=== PATIENT | female | born 1965 | race Caucasian/White ===

== ENCOUNTER → 2016-08-10 | Outpatient (CLI) | payer MEDICARE, MEDICAID ==
[~2016-08-10] MED LIST: ALDACTONE25 M1 PO; AMBIEN10 M1 PO; COREG CR10 MG PO; CYCLOBENZAPRINE10 MG PO; EFFEXOR XR37.5 M1 PO; GEODON80 MG PO; HYDROCODONE BIT1 T11 PO; LASIX20 MG PO; LISINOPRIL10 MG PO; MOTRIN800 MG PO; NORCO 10-325 T1 EACH PO; PREDNICOT20 MG PO; PREDNISONE20 MG PO; PREVACID30 M1 PO; SYNTHROID; Synthroid,Levo50 MCG PO; TRAD5TAB1 PO; VALIUM10 MG PO; VOLTAREN50 M1 PO; ZOLOFT100 MG PO
[2016-08-10 11:48] LABS: BASO % 0.5 % (0.0-1.0); EOS # 0.2 10*3/uL (0.0-0.4); EOS % 2.9 % (1.0-4.0); HEMATOCRIT 48.2 % (37.0-47.0); HEMOGLOBIN 16.3 g/dl (12.0-16.0); IG # 0.1 10*3/uL (0.0-0.1); LYMPH # 2.4 10*3/uL (1.3-4.4); LYMPH % 28.1 % (27.0-41.0); MEAN CELL VOLUME 87.8 fl (81.0-99.0); MEAN CORPUSCULAR HGB 29.7 pg (27.0-31.0); MEAN CORPUSCULAR HGB CONC 33.8 g/dl (33.0-37.0); MONO # 0.5 10*3/uL (0.1-1.0); MONO % 5.8 % (3.0-9.0); NEUT # 5.2 10*3/uL (2.3-7.9); NEUT % 62.1 % (47.0-73.0); PLATELET COUNT AUTOMATED 154 10*3/uL (130-400); RED BLOOD COUNT 5.49 10*6/uL (4.10-5.10); RED CELL DISTRI WIDTH 13.7 % (0-14.5); WHITE BLOOD COUNT 8.4 10*3/uL (4.8-10.8)
[2016-08-10 12:13] LABS: ALBUMIN 3.8 gm/dl (3.1-4.5); ALKALINE PHOSPHATASE 98 U/L (45-117); BILIRUBIN, TOTAL 0.5 mg/dl (0.2-1.0); BUN 11 mg/dl (7-24); CARBON DIOXIDE 32 mmol/L (21-32); CHLORIDE 100 mmol/L (98-107); CHOLESTEROL 176 mg/dL (<200); EST GLOM FILT AFRICAN AMERICAN > 60 ml/min; GLUCOSE 166 mg/dL (65-99); HDL CHOLESTEROL 46 mg/dl (40-60); LDL CHOLESTEROL 101 mg/dL (9-159); POTASSIUM 3.6 mmol/L (3.5-5.1); SGOT/AST 27 IU/L (3-35); SGPT/ALT 35 U/L (12-78); SODIUM 138 mmol/L (136-145); TOTAL PROTEIN 7.8 gm/dL (6.4-8.2); TRIGLYCERIDES 146 mg/dl (<150); VLDL CHOLESTEROL 29 mg/dL (6-40)
== END | disposition home or self-care (01) ==
LOC: CARD 08:30 → LAB 08:53 → MAMMO 09:30 → CARD 08-17 09:00
PROVIDERS: Internal Medicine
DX: Z12.31 Encounter for screening mammogram for malignant neoplasm of breast (principal); J44.1 Chronic obstructive pulmonary disease with (acute) exacerbation; E78.2 Mixed hyperlipidemia; R60.0 Localized edema; G47.33 Obstructive sleep apnea (adult) (pediatric)

== ENCOUNTER → 2016-12-11 | Outpatient (CLI) | payer MEDICARE, OTHER | END | disposition home or self-care (01) | LOC: LAB 12:17 | DX: D64.9 Anemia, unspecified (principal); R53.83 Other fatigue ==

== ENCOUNTER → 2017-02-15 | Outpatient (CLI) | payer MEDICARE, OTHER | END | disposition home or self-care (01) | LOC: RAD 14:20 | DX: M47.817 Spondylosis without myelopathy or radiculopathy, lumbosacral region (principal) ==

== ENCOUNTER 2017-03-04 09:59 | Inpatient (IN) | payer OTHER ==
[~2017-03-04] VITALS: Ht 167.6 cm; Wt 127.0 kg
--- NOTE | ~2017-03-04 | WRIGHTHP ---
[place], [place] PATIENT HISTORY AND PHYSICAL EXAM NAME: KOLE CAIN [facility] #: [id number] UNIT #: [id number] ROOM: 404 DOCTOR: ASHWINI WHITNEY MD BIRTHDATE: [birth year] DOS: 03/04/2017 HISTORY OF PRESENT ILLNESS: The patient is a 51-year-old female with a past medical history of: 1. Obesity. 2. Continued nicotine smoke dependence. 3. Hypothyroidism. 4. COPD with chronic respiratory failure and oxygen dependence. 5. Major depression, recurrent. 6. Benign essential hypertension. 7. Bipolar disorder. 8. Type 2 diabetes mellitus. The patient presented to the Emergency Department at [facility] for increasing shortness of breath, cough and some wheezing. After initial treatment in the Emergency Department, the patient was recommended for admission and further management. After admission, the patient had been found smoking in the restroom. The patient says breathing feels even worse after she smoked cigarettes in the hospital. Complains of chest pains prior to coming to the hospital. Now she is pain free and cardiac enzymes have been negative. REVIEW OF SYSTEMS: CARDIOVASCULAR: The patient with episode of chest pains prior to coming to the hospital. LUNGS: Increasing shortness of breath and wheezing. GASTROINTESTINAL: No nausea, vomiting, diarrhea or constipation. FAMILY HISTORY: Noncontributory. HOME MEDICATIONS: Coreg, Geodon, Brintellix, lisinopril, hydrochlorothiazide, Protonix, metformin, glimepiride, gabapentin, diazepam. ALLERGIES: Known allergies to Tagamet and NSAIDs. PHYSICAL EXAMINATION: GENERAL: The patient is alert and oriented x 3, morbidly obese. HEENT AND NECK: Extraocular movements are intact. Sclerae are anicteric. Oral mucosa is moist and clean. No obvious facial weakness. Neck is supple without any lymphadenopathy. No thyromegaly. No JVD. No carotid arterial bruits. LUNGS: Decreased breath sounds all over and slight expiratory wheeze. CARDIOVASCULAR SYSTEM: Heart rate is regular in rate and rhythm. S1 and S2 normally audible. No significant murmur or any other abnormal cardiac sounds. ABDOMEN: Soft, nontender. No obvious organomegaly. Bowel sounds are present. No obvious herniation. EXTREMITIES: Without significant cyanosis or edema. Warm to touch. CENTRAL NERVOUS SYSTEM: Alert and oriented x 3. Cranial nerves II-XII are intact. Speech is normal. The patient is able to move all extremities. Normal muscle strength. Deep tendon reflexes are equal on both sides. Plantars were downgoing. [place], [place] PATIENT HISTORY AND PHYSICAL EXAM NAME: KOLE CAIN [facility] #: [id number] UNIT #: [id number] ROOM: [facility] DOCTOR: ASHWINI WHITNEY MD BIRTHDATE: [birth year] LABORATORY DATA: Normal CBC. Normal serum electrolytes, bilirubin, liver enzymes. CO2 elevated at 34. Chest x-ray showing small right base infiltrate. Cardiac enzymes have been negative so far x 3. IMPRESSION AND PLAN: 1. The patient presenting with chest pains from uncertain etiology. Cardiac enzymes were negative. Cardiology consulted for opinion and management. 2. The patient with severe underlying chronic obstructive pulmonary disease with acute over chronic respiratory failure and on oxygen dependence. The patient being treated with bronchodilators, oxygen, nebulizer treatment and I will consult Dr. Núñez to follow. 3. Right lower lobe pneumonia to be treated with antibiotics. The patient is on Rocephin. 4. Nicotine smoke dependence. The patient encouraged to stop smoking cigarettes and start her on nitropatch. 5. Major depression, recurrent and bipolar disorder. All her home meds from psychiatrist have been continued. 6. Type 2 diabetes mellitus. We will continue home medicine, monitor blood sugars and treat accordingly. 7. Hypothyroidism, treated with thyroid supplements. ASHWINI WHITNEY MD CM:HISPHYS:PATIENT HISTORY AND PHYSICAL EXAMINATION [phone] ASHWINI WHITNEY MD 03/05/172100 interface
--- NOTE | ~2017-03-04 | DS ---
[place], [place] DISCHARGE SUMMARY NAME: KOLE CAIN [facility] #: [id number] UNIT #: [id number] ROOM: 404 DOCTOR: ASHWINI WHITNEY MD BIRTHDATE: [birth year] DOS: 03/07/2017 DISCHARGE DIAGNOSES: 1. The patient with complaints of chest pains with normal cardiac stress test. 2. Exacerbation of chronic obstructive pulmonary disease, improving with treatment. 3. Morbid obesity. The patient worked with Dietary. 4. Right lower lobe pneumonia, treated with antibiotics. 5. Nicotine smoke dependence. The patient encouraged to stop. 6. Major depression, recurrent and bipolar disorder, mild. 7. Type 2 diabetes mellitus. 8. Hypothyroidism. HOSPITAL COURSE: 1. The patient admitted to [facility] with increasing shortness of breath and wheezing. She also had complaints of chest pains. The patient was found to have small right lower lobe basilar pneumonia. The patient was started on treatment with IV Rocephin, corticosteroids, oxygen, and DuoNeb and breathing slowly improved. The patient is feeling better and will be discharged to home to follow up with her PCP, Dr. Bowen within a week of discharge. The patient is being sent home on Augmentin and Medrol Dosepak along with DuoNebs. 2. The right lower lobe pneumonia, small, treated with Rocephin. 3. Morbid obesity. The patient worked with Dietary. 4. Nicotine smoke dependence. The patient encouraged to stop smoking cigarettes. 5. Major depression, recurrent, mild and also bipolar disorder, I continued her home meds. 6. Type 2 diabetes mellitus. Blood sugars are monitored and treated. 7. Hypothyroidism, treated with thyroid supplements. 8. Chest pain. The patient was taken for cardiac stress testing by the weight recorder and the results were normal. LABORATORY DATA: Cardiac enzymes were negative. Normal serum electrolytes. Cardiac stress test was negative. DISCHARGE MANAGEMENT: Medrol Dosepak, Augmentin for 1 week, Coreg 12.5 mg at bedtime, Geodon 160 mg at bedtime, Brintellix 20 mg a day, hydrochlorothiazide 20 mg daily, lisinopril 20 mg a day, Tradjenta 5 mg a day, Protonix 40 mg a day, doxepin 25 mg at bedtime, metformin 1000 mg b.i.d., glimepiride 2 mg b.i.d., gabapentin 800 mg every 8 hours, DuoNebs q.i.d., Vicodin p.r.n., diazepam 10 mg t.i.d. p.r.n. for anxiety. [place], [place] DISCHARGE SUMMARY NAME: KOLE CAIN UNIT #: [id number] ROOM: 404 DOCTOR: ASHWINI WHITNEY MD BIRTHDATE: [birth year] ASHWINI WHITNEY MD CM:DISCHARG [phone] [id number] ASHWINI WHITNEY MD 03/07/172310 interface
--- NOTE | ~2017-03-04 | ST ---
[place], [place] EXERCISE STRESS TEST REPORT NAME: KOLE CAIN [facility] #: [id number] UNIT #: [id number] ROOM: 404 DOCTOR: KRISTEL HAWKINS,PETER BIRTHDATE: [birth year] DOS: 03/07/2017 REASON FOR TEST: Evaluation of chest pain. PHYSICAL EXAMINATION NECK: Supple. LUNGS: Clear anteriorly. HEART: Regular rhythm. PROTOCOL: Lexiscan protocol. Maximum heart rate 81, peak blood pressure 118/70. SYMPTOMS: The patient is chest pain free. EKG: Resting EKG shows sinus rhythm. Stress EKG showed no ischemia, no arrhythmias. CONCLUSION: Clinically, the patient is chest pain free. EKG nonischemic. POST-STRESS COMPLICATIONS: None. The patient received a total of 0.4 mg Lexiscan. PETER HUMPHRIES MD CM:STRESS:EXERCISE STRESS TEST REPORT 1002 0034 PETER HUMPHRIES MD
--- NOTE | ~2017-03-04 | PR ---
[place], [place] PROGRESS NOTE NAME: KOLE CAIN [facility] #: [id number] UNIT #: [id number] ROOM: 404 DOCTOR: ASHWINI WHITNEY MD BIRTHDATE: [birth year] DOS: 03/06/2017 SUBJECTIVE: The patient is still complaining of shortness of breath and wheezing despite of treatment with antibiotics and corticosteroids. No complaints of any chest pains. OBJECTIVE: VITAL SIGNS: Blood pressure 123/81, heart rate of 80 beats per minute, breathing 20 times a minute, temperature of 98 degrees Fahrenheit. IMPRESSION: 1. Exacerbation of severe underlying chronic obstructive pulmonary disease with shortness of breath and wheezing. I will get consult with Dr. Núñez and see if she requires bronchoscopy for a quicker recovery. The patient already being treated with antibiotic, oxygen, corticosteroids and bronchodilators. 2. Right lower lobe basilar pneumonia, being treated with Rocephin. 3. Morbid obesity and adult failure to thrive. The patient working with dietary. 4. Nicotine smoke dependence. The patient on nicotine patch, encouraged to stop. 5. Major depression, recurrent and bipolar disorder, mild, being treated and controlled. 6. Type 2 diabetes mellitus. Blood sugars being monitored and treated. 7. Hypothyroidism, treated with thyroid supplements. ASHWINI WHITNEY MD CM:PNTRANS [id number] ASHWINI WHITNEY MD 03/07/17 1139 interface
--- NOTE | ~2017-03-04 | CON ---
[place], [place] REPORT OF CONSULTATION NAME: KOLE CAIN [facility] #: [id number] UNIT #: [id number] ROOM: 404 DOCTOR: PETER HUMPHRIES MD BIRTHDATE: [birth year] DOS: 03/06/2017 REASON FOR CONSULTATION: Chest pain. CLINICAL HISTORY: The patient is a 51-year-old patient with history of hypertension, diabetes, dyslipidemia, obesity, came to the Emergency Room for shortness of breath. She noted to have progressive shortness of breath for the past few days, associated with some cough and wheezing. While she was in the Emergency Room, she also mentioned that she had some intermittent chest pains prior to her coming to the hospital. She described this pain as the midsternal area, mostly at rest, sometimes with walking. She described this as gripping and tightness that lasts for a few seconds to a few hours. No radiation, no associated symptoms. His pain is mild and relieves on its own. Her main complaint is progressive shortness of breath. No fever and chills. She did have some cough and no palpitations, dizziness, syncope. No PND, no orthopnea. No nausea, vomiting, diarrhea. No blurred vision, double vision. No genitourinary symptoms. No GI symptoms. No musculoskeletal symptoms. REVIEW OF SYSTEMS: Review of the 10 systems negative except as mentioned above. PAST MEDICAL HISTORY: 1. Hypertension. 2. Diabetes type 2. 3. Obesity. 4. Bipolar disorder. 5. Hypothyroidism. 6. Chronic obstructive pulmonary disease. 7. Obesity. PAST SURGICAL HISTORY: Noncontributory. FAMILY HISTORY: Noncontributory. HOME MEDICATIONS: Reviewed. ALLERGIES: PATIENT IS ALLERGIC TO TAGAMET and nonsteroidal antiinflammatory drugs. PHYSICAL EXAMINATION: VITAL SIGNS: Blood pressure 125/68, pulse 73, respirations 18, BMI 45.2. GENERAL: Alert, comfortable, in no acute distress. The patient is still short of breath, sitting in the bed. HEENT: Pupils are round and equal. No jaundice. Tongue was moist and pharynx was clear. NECK: Supple, no distended neck veins, no carotid bruit. CHEST: Symmetrical, nontender. LUNGS: Few scattered rhonchi and minimal wheeze, no rales. HEART: Regular rhythm, no S3, grade 1/6 systolic murmur. No palpable thrills. ABDOMEN: Obese, nontender. Bowel sounds normal. EXTREMITIES: Showed trace edema. Distal pulses are palpable. [place], [place] REPORT OF CONSULTATION NAME: KOLE CAIN UNIT #: [id number] ROOM: [facility] DOCTOR: KRISTEL HAWKINS,PETER BIRTHDATE: [birth year] SKIN: Warm and dry. No cyanosis, no clubbing. NEUROLOGIC: The patient is alert, oriented. No focal neurologic deficit. RECTAL: Deferred. GENITOURINARY: Deferred. MEDICATIONS AND ALLERGIES: Reviewed. REVIEW OF THE DIAGNOSTIC TESTS: EKG showed normal sinus rhythm with no acute ST-T changes. CBC, chemistry and cardiac enzymes reviewed. IMPRESSION: 1. Chest pain, atypical, myocardial infarction ruled out. 2. Shortness of breath due to chronic obstructive pulmonary exacerbation and obesity. 3. Hypertension, stable. 4. Diabetes type 2. 5. Tobacco use. 6. Morbid obesity. RECOMMENDATIONS: 1. Continue current medications. 2. The patient will be scheduled for Lexiscan stress test tomorrow to rule out ischemia due to her chest pain and multiple coronary artery disease risk factors. 3. Check 2D echo for LV function and valvular function due to her shortness of breath. The patient risk factor modification to quit smoking as well as diet, exercise and weight loss discussed. Further recommendations based on her symptoms and about tests. Thank you, Dr. Oneal, for asking us to evaluate this patient and we will follow the case along with you. PETER HUMPHRIES MD CM:CONSTR:REPORT OF CONSULTATION 1407 03/07/17 0530 interface
--- NOTE | ~2017-03-04 | PR ---
[place], [place] PROGRESS NOTE NAME: KOLE CAIN UNIT #: [id number] ROOM: 404 DOCTOR: PETER HUMPHRIES MD BIRTHDATE: [birth year] DOS: 03/07/2017 REASON FOR VISIT: Chest pain and shortness of breath. SUBJECTIVE: The patient is feeling better, no further chest pain. Denies any palpitation, dizziness. Her breathing is much better and less short of breath. REVIEW OF SYSTEMS: Review of the 8 systems negative except as mentioned above. RHYTHM STRIPS: The patient in sinus rhythm. PHYSICAL EXAMINATION: VITAL SIGNS: Blood pressure 108/66, pulse 69 and respiration was 18. GENERAL: Alert, comfortable, in no acute distress. HEENT: Pupils are round and equal. No jaundice. NECK: Supple, no distended neck veins, no carotid bruit. CHEST: Symmetrical, nontender. LUNGS: Few scattered rhonchi, good air entry bilaterally. HEART: Regular rhythm, no S3, no palpable thrills. ABDOMEN: Obese, nontender. Bowel sounds normal. EXTREMITIES: Showed trace edema. Distal pulses are palpable. SKIN: Warm and dry. No cyanosis, no clubbing. NEUROLOGIC: The patient is alert, oriented. No focal neurologic deficit. RECTAL: Deferred. GENITOURINARY: Deferred. MEDICATIONS AND ALLERGIES: Reviewed. IMPRESSION: 1. Chest pain, atypical, myocardial infarction ruled out. 2. Shortness of breath due to chronic obstructive pulmonary disease exacerbation. 3. Hypertension. 4. Diabetes type 2. 5. Tobacco use. 6. Morbid obesity. RECOMMENDATIONS: 1. Blood pressure and heart rates are stable. 2. She has no further chest pains. 3. Continue current medications. 4. Lexiscan stress test today. 5. Risk factor modification to quit smoking, diet, exercise, weight loss discussed. 6. If the stress test is unremarkable, she can be discharged home from the cardiac standpoint. [place], [place] PROGRESS NOTE NAME: KOLE CAIN UNIT #: [id number] ROOM: 404 DOCTOR: PETER HUMPHRIES MD BIRTHDATE: [birth year] PETER HUMPHRIES MD CM:LORI 1004 PETER HUMPHRIES MD 03/08/17 0037 interface
[2017-03-04 10:05] VITALS: BP 120/72
[2017-03-04 10:37] LABS: BASO % 0.3 % (0.0-1.0); EOS # 0.2 10*3/uL (0.0-0.4); EOS % 2.6 % (1.0-4.0); HEMATOCRIT 46.4 % (37.0-47.0); HEMOGLOBIN 15.9 g/dl (12.0-16.0); LYMPH # 1.8 10*3/uL (1.3-4.4); MEAN CELL VOLUME 88.7 fl (81.0-99.0); MEAN CORPUSCULAR HGB 30.4 pg (27.0-31.0); MEAN CORPUSCULAR HGB CONC 34.3 g/dl (33.0-37.0); MEAN PLATELET VOLUME 11.7 fl (9.6-12.3); MONO # 0.4 10*3/uL (0.1-1.0); MONO % 5.5 % (3.0-9.0); NEUT # 4.5 10*3/uL (2.3-7.9); NEUT % 65.2 % (47.0-73.0); PLATELET COUNT AUTOMATED 117 10*3/uL (130-400); RED BLOOD COUNT 5.23 10*6/uL (4.10-5.10)
[2017-03-04 10:45] LABS: PROTHROMBIN TIME 10.7 SECONDS (9.0-12.4)
[2017-03-04 10:53] LABS: ALBUMIN 3.6 gm/dl (3.1-4.5); ALKALINE PHOSPHATASE 100 U/L (45-117); BILIRUBIN, TOTAL 0.7 mg/dl (0.2-1.0); BUN 11 mg/dl (7-24); CARBON DIOXIDE 34 mmol/L (21-32); CHLORIDE 100 mmol/L (98-107); EST GLOM FILT AFRICAN AMERICAN > 60 ml/min; GLUCOSE 181 mg/dL (65-99); MAGNESIUM 2.1 mg/dL (1.5-2.1); POTASSIUM 3.8 mmol/L (3.5-5.1); SGOT/AST 31 IU/L (3-35); SGPT/ALT 38 U/L (12-78); SODIUM 140 mmol/L (136-145); TOTAL PROTEIN 7.6 gm/dL (6.4-8.2)
[2017-03-04 10:54] LABS: TROPONIN I < 0.015 ng/ml (<0.045)
[2017-03-04 12:30] VITALS: BP 121/68
[2017-03-04] MEDS ORDERED: NEXIUM40 MG PO (12:48)
[2017-03-04] MEDS ORDERED: TRINTELLIX20 MG PO (12:48)
[2017-03-04] MEDS ORDERED: DOXEPIN HCL25 MG PO (12:49)
[2017-03-04] MEDS ORDERED: CALCIUM 500 +1 EAC1 PO (12:50)
[2017-03-04] MEDS ORDERED: NEURONTIN800 MG PO (12:50)
[2017-03-04] MEDS ORDERED: IRON325 M3 PO (12:51)
[2017-03-04] MEDS ORDERED: PROAIR HFA8.5 GM INH (12:52)
[2017-03-04] MEDS ORDERED: DUONEB 3 MG/3 ML3 M1 INH (12:53)
[2017-03-04] MEDS ORDERED: METFORMIN1000 MG PO (12:53)
[2017-03-04] MEDS ORDERED: CLARITIN10 MG PO (12:54)
[2017-03-04] MEDS ORDERED: AMARYL2 MG PO (12:55)
[2017-03-04] MEDS ORDERED: LISINOPRIL-HCT1 EACH PO (12:58)
[2017-03-04 13:00] VITALS: BP 121/68
[2017-03-04] MEDS ORDERED: NORCO 5-325 TA1 EACH PO (13:14)
[2017-03-04] MEDS ORDERED: PRINIVIL10 MG PO (13:24)
[2017-03-04] MEDS ORDERED: HYDROCHLOROTHIA25 M1 PO (13:25)
[2017-03-04 16:00] VITALS: BP 117/91
[2017-03-04 20:00] VITALS: BP 128/69
[2017-03-05] VITALS: BP 140/74
[2017-03-05 08:00] VITALS: BP 120/68
[2017-03-05 12:00] VITALS: BP 121/66
[2017-03-05 16:00] VITALS: BP 125/72
[2017-03-05 20:00] VITALS: BP 132/70
[2017-03-06] VITALS: BP 121/73
[2017-03-06 08:00] VITALS: BP 125/68
[2017-03-06 12:00] VITALS: BP 126/67
[2017-03-06] MEDS ORDERED: TOPICAINE 5113 GM T (13:27)
[2017-03-06 16:00] VITALS: BP 123/81
[2017-03-06 20:00] VITALS: BP 120/65
[2017-03-07] VITALS: BP 129/80; BP 130/81
[2017-03-07 08:00] VITALS: BP 112/64
[2017-03-07 12:00] VITALS: BP 119/70
[2017-03-07 16:00] VITALS: BP 130/69
[2017-03-07] MEDS ORDERED: AUGMENTIN 875-875 MG PO (18:37)
[2017-03-07] MEDS ORDERED: MEDROL DOSEPAK4 MG PO (18:37)
== END 2017-03-07 20:00 | disposition home or self-care (01) | DRG 189 ==
LOC: ED 09:59 → EDHOLD 10:47 → 4E 10:47
PROVIDERS: Emergency Medicine
PROC: 3E073KZ Introduction of Other Diagnostic Substance into Coronary Artery, Percutaneous Approach (ICD-10-PCS; principal; 2017-03-07)
PROC: 4A02XM4 Measurement of Cardiac Total Activity, External Approach (ICD-10-PCS; principal; 2017-03-07)
DX: J96.20 Acute and chronic respiratory failure, unspecified whether with hypoxia or hypercapnia (principal); J18.1 Lobar pneumonia, unspecified organism; Z99.81 Dependence on supplemental oxygen; J44.0 Chronic obstructive pulmonary disease with (acute) lower respiratory infection; J44.1 Chronic obstructive pulmonary disease with (acute) exacerbation; F31.30 Bipolar disorder, current episode depressed, mild or moderate severity, unspecified; Z68.42 Body mass index [BMI] 45.0-49.9, adult; I10 Essential (primary) hypertension; E11.9 Type 2 diabetes mellitus without complications; R07.89 Other chest pain; R62.7 Adult failure to thrive; E03.9 Hypothyroidism, unspecified; F17.210 Nicotine dependence, cigarettes, uncomplicated; E66.01 Morbid (severe) obesity due to excess calories; Z98.51 Tubal ligation status; Z88.8 Allergy status to other drugs, medicaments and biological substances

== ENCOUNTER → 2019-03-25 | Day surgery (SDC) | payer OTHER ==
[~2019-03-25] VITALS: Ht 168.9 cm; Wt 120.2 kg
[~2019-03-25] MED LIST changes: +'XANAX1 MG PO; +AMARYL2 MG PO; +AUGMENTIN 875-875 MG PO; +BREO ELLIPTA 21 EACH INH; +CALCIUM 500 +1 EAC1 PO; +CENTRUM SILVER1 EAC1 PO; +CLARITIN10 MG PO; +CO Q10100 MG PO; +COREG12.5 M1 PO; +DOXEPIN HCL100 MG PO; +DOXEPIN HCL25 MG PO; +DUONEB 3 MG/3 ML3 M1 INH; +ESTROVEN MAX400 MCG PO; +FOSAMAX70 M1 PO; +FUROSEMIDE20 M1 PO; +Glimepiride1 MG PO; +HYDROCHLOROTHIA25 M1 PO; +IRON325 M3 PO; +JOINT HEALTH PO; +LISINOPRIL-HCT1 EACH PO; +MEDROL DOSEPAK4 MG PO; +MELATONIN10 M4 PO; +METFORMIN1000 MG PO; +NEURONTIN800 MG PO; +NEXIUM40 MG PO; +NORCO 5-325 TA1 EACH PO; +OMEPRAZOLE D/R20 MG PO; +PRINIVIL10 MG PO; +PROAIR HFA8.5 GM INH; +TOPICAINE 5113 GM T; +TRINTELLIX20 MG PO; +[UNRECOGNIZED DRUG - OTHER] PO
--- NOTE | ~2019-03-25 | O ---
[place], [place] OPERATIVE NOTE NAME: KOLE CAIN UNIT #: [id number] ROOM: DOCTOR: DEANNA MORAN MD BIRTHDATE: [birth year] DOS: 03/25/2019 GASTROENDOSCOPIC REPORT INDICATIONS: The patient has presented with a chief complaint of dyspepsia, history of colonic screening needs as well. PAST HISTORY: Aggressive three-pack smoker of cigarettes and nonalcohol consumer, drinking at least 6 pack of carbonated sodas per day. ALLERGIES: NONSTEROIDAL ANTI-INFLAMMATORY AND TAGAMET. FAMILY HISTORY: Mother with colonic carcinoma. PAST SURGICAL HISTORY: , tubal ligation. PAST MEDICAL HISTORY: Obesity, hypothyroidism, diabetes, COPD, hypertension, depression, bipolar, anxiety. SOCIAL HISTORY: A 2-3 pack smoker and 6 pack of carbonated soda drinking per day. PROCEDURE: Today's procedure part of investigation is panendoscopy and colonoscopy. PREMEDICATION: Propofol. SCOPE: Olympus forward-viewing gastroscope Q10 video. REPORT: After putting the patient in left lateral position and application of lubricant to the scope, the scope was introduced. Thereafter, under direct visualization, advanced through the length of esophagus without difficulty. Gastritis was seen. Antral biopsy was obtained. Duodenal bulb, second and third part within normal limits. The patient extubated, tolerated the procedure well. IMPRESSION: Gastritis, status post biopsy. PLAN AND DISCUSSION: The patient is already on omeprazole 20 mg day. We are going to switch that to 40 mg daily. Advised to abstain from drinking 6 pack of carbonated soda per day. Advised to stop smoking 2-3 packs of cigarettes per day. Followup with you in office. We are going to proceed with colonoscopy. The patient has presented with concern about colonic screening, family history of mother with colonic CA. PROCEDURE: Today's procedure part of investigation is colonoscopy. PREMEDICATION: Propofol. [place], [place] OPERATIVE NOTE NAME: KOLE CAIN UNIT #: [id number] ROOM: DOCTOR: DEANNA MORAN MD BIRTHDATE: [birth year] SCOPE: Olympus forward-viewing colonoscope 10L video. DESCRIPTION OF PROCEDURE: After putting the patient in left lateral position and application of lubricant to the scope, the scope was introduced. Thereafter, under direct visualization, advanced through the length of colon without difficulty. Base of the cecum explored, appendiceal orifice identified, and ileocecal valve was defined. Rare diverticulosis in sigmoid colon seen. The patient extubated, tolerated the procedure well. IMPRESSION: Rare diverticulosis. PLAN: Dietary modification discussed with the patient. It appear, the patient is not going to be compliant; however advice was given. The patient advised to have routine followup with you in office in GI Clinic, followup with us in 2 weeks in the office. DEANNA MORAN MD CM:OPRECORD:OPERATIVE NOTE 8 2 ASHWINI MORAN MD 03/25/19842 interface
--- NOTE | ~2019-03-25 | POSTOPNOTE ---
[place], [place] POSTOPERATIVE PROGRESS NOTE NAME: KOLE CAIN UNIT #: [id number] ROOM: DOCTOR: DEANNA MORAN MD BIRTHDATE: [birth year] DATE: 03/25/19 GI NOTE PREOPERATIVE DIAGNOSIS: DYSPEPSIA POSTOP UPPER GI PROC/FINDINGS: UPPER GI PROCEDURE/SURGERY: EGD WITH BIOPSY UPPER GI FINDINGS: GASTRITIS STATUS POST BIOPSY DEANNA MORAN MD CM:POSTOPN [phone] DEANNA MORAN MD 03/27/19 1025 HOLDEN HAZEL.R
[2019-03-25 06:45] VITALS: BP 109/54
[2019-03-25 08:12] VITALS: BP 106/68
[2019-03-25 08:26] VITALS: BP 111/69
[2019-03-25 08:40] VITALS: BP 105/54
== END | disposition home or self-care (01) ==
LOC: SDC 03-03 08:45
DX: Z12.11 Encounter for screening for malignant neoplasm of colon (principal); K29.50 Unspecified chronic gastritis without bleeding; K57.30 Diverticulosis of large intestine without perforation or abscess without bleeding; E03.9 Hypothyroidism, unspecified; E11.9 Type 2 diabetes mellitus without complications; J44.9 Chronic obstructive pulmonary disease, unspecified; I10 Essential (primary) hypertension; F41.9 Anxiety disorder, unspecified; F32.9 Major depressive disorder, single episode, unspecified; F17.210 Nicotine dependence, cigarettes, uncomplicated; E66.9 Obesity, unspecified; Z68.41 Body mass index [BMI] 40.0-44.9, adult; Z80.0 Family history of malignant neoplasm of digestive organs; Z98.51 Tubal ligation status; Z79.82 Long term (current) use of aspirin; Z79.84 Long term (current) use of oral hypoglycemic drugs; Z79.899 Other long term (current) drug therapy; Z88.8 Allergy status to other drugs, medicaments and biological substances

== ENCOUNTER 2019-06-14 13:22 | Emergency (ER) | payer OTHER ==
[~2019-06-14] VITALS: Ht 167.6 cm; Wt 120.2 kg
[~2019-06-14 13:22] MED LIST changes: +GLIMEPIRIDE2 MG PO; +GLUCOPHAGE1000 MG PO; -Glimepiride1 MG PO; +HAIR, SKIN AND1 EAC1 PO; -JOINT HEALTH PO; +JOINT HEALTH T1 EACH PO; -METFORMIN1000 MG PO; -OMEPRAZOLE D/R20 MG PO; +OMEPRAZOLE MAGN20 MG PO; -[UNRECOGNIZED DRUG - OTHER] PO
[2019-06-14 13:23] VITALS: BP 110/69
[2019-06-14] MEDS ORDERED: NORCO 5-325 TA1 EACH PO (17:00)
[2019-06-15] MEDS ORDERED: ALPRAZOLAM2 MG PO (14:58)
[2019-06-15] MEDS ORDERED: OMEPRAZOLE20 M2 PO (15:02)
[2019-06-15] MEDS ORDERED: KRILL OIL500 MG PO (15:03)
[2019-06-15] MEDS ORDERED: ST. JOHN'S WOR300 MG PO (15:03)
== END 2019-06-14 17:29 | disposition home or self-care (01) ==
LOC: ED 13:22
DX: S82.831A Other fracture of upper and lower end of right fibula, initial encounter for closed fracture (principal); J44.9 Chronic obstructive pulmonary disease, unspecified; I10 Essential (primary) hypertension; E11.9 Type 2 diabetes mellitus without complications; Z88.8 Allergy status to other drugs, medicaments and biological substances; Z91.040 Latex allergy status; Z79.899 Other long term (current) drug therapy; X50.1XXA Overexertion from prolonged static or awkward postures, initial encounter; Y93.89 Activity, other specified; Y92.488 Other paved roadways as the place of occurrence of the external cause; Y99.8 Other external cause status

== ENCOUNTER → 2019-06-15 | Outpatient (CLI) | payer OTHER ==
[~2019-06-15] MED LIST changes: +ALPRAZOLAM2 MG PO; -GLIMEPIRIDE2 MG PO; -GLUCOPHAGE1000 MG PO; +Glimepiride1 MG PO; -HAIR, SKIN AND1 EAC1 PO; +JOINT HEALTH PO; -JOINT HEALTH T1 EACH PO; +KRILL OIL500 MG PO; +METFORMIN1000 MG PO; +OMEPRAZOLE D/R20 MG PO; -OMEPRAZOLE MAGN20 MG PO; +OMEPRAZOLE20 M2 PO; +ST. JOHN'S WOR300 MG PO; +[UNRECOGNIZED DRUG - OTHER] PO
--- NOTE | ~2019-06-15 | EKG ---
[place], [place] ELECTROCARDIOGRAM REPORT NAME: KOLE CAIN UNIT #: [id number] ROOM: DOCTOR: EPIPHANY DRAFT REPORT BIRTHDATE: [birth year] [facility] Test Date: 2019-06-15 Test Time: 14:26:09 Pat Name: KOLE CAIN Department: Room: Gender: F Assistant Executive Housekeeper: : 1965 Requested By: AMARILIS LAMAS Order Number: [id number] Reading MD: Jerry Lundberg MD Measurements Intervals [place] Rate: 75 P: 8 WY: 173 QRS: 7 QRSD: 89 T: 26 QT: 400 QTc: 447 Interpretive Statements Sinus rhythm Low voltage, precordial leads Baseline wander in lead(s) II Electronically Signed On 06-16-2019 4:30:46 PST by Jerry Lundberg MD CM:EKGRPT:ELECTROCARDIOGRAM REPORT 1426 0430 AMARILIS LAMAS MD EPIPHDONOVAN DRAFT REPORT AMARILIS LAMAS MD
[2019-06-15 14:25] LABS: BASO # 0.1 10*3/uL (0.0-0.1); BASO % 0.6 % (0.0-1.0); EOS # 0.2 10*3/uL (0.0-0.4); EOS % 2.3 % (1.0-4.0); HEMATOCRIT 49.7 % (37.0-47.0); LYMPH # 2.8 10*3/uL (1.3-4.4); LYMPH % 33.2 % (27.0-41.0); MEAN CELL VOLUME 89.1 fl (81.0-99.0); MEAN CORPUSCULAR HGB 30.5 pg (27.0-31.0); MEAN CORPUSCULAR HGB CONC 34.2 g/dl (33.0-37.0); MEAN PLATELET VOLUME 12.3 fl (9.6-12.3); MONO # 0.5 10*3/uL (0.1-1.0); MONO % 5.9 % (3.0-9.0); NEUT # 4.9 10*3/uL (2.3-7.9); NEUT % 57.8 % (47.0-73.0); PLATELET COUNT AUTOMATED 156 10*3/uL (130-400); RED BLOOD COUNT 5.58 10*6/uL (4.10-5.10); RED CELL DISTRI WIDTH 12.9 % (0-14.5); WHITE BLOOD COUNT 8.5 10*3/uL (4.8-10.8)
[2019-06-15 14:38] LABS: ACT PARTIAL THROMBO TIME 25.7 SECONDS (20.0-32.1)
[2019-06-15 14:39] LABS: BUN 11 mg/dl (7-24); CHLORIDE 98 mmol/L (98-107); CREATININE 0.85 mg/dL (0.55-1.02); POTASSIUM 3.5 mmol/L (3.5-5.1); SODIUM 135 mmol/L (136-145)
== END | disposition home or self-care (01) ==
LOC: US 12:00
PROVIDERS: Internal Medicine Nephrology
DX: I73.9 Peripheral vascular disease, unspecified (principal); E11.9 Type 2 diabetes mellitus without complications; I10 Essential (primary) hypertension; R20.0 Anesthesia of skin; Z72.0 Tobacco use

== ENCOUNTER 2019-06-17 01:24 | Inpatient (IN) | payer OTHER ==
[2019-06-15 14:56] VITALS: BP 114/73
[~2019-06-17] VITALS: Ht 7886.7 cm; Wt 2.4 kg
[2019-06-17] VITALS (8 sets, daily range): BP systolic 109–132; BP diastolic 62–74
[~2019-06-17 01:24] MED LIST changes: +GLIMEPIRIDE2 MG PO; +GLUCOPHAGE1000 MG PO; -Glimepiride1 MG PO; +HAIR, SKIN AND1 EAC1 PO; -JOINT HEALTH PO; +JOINT HEALTH T1 EACH PO; -METFORMIN1000 MG PO; -OMEPRAZOLE D/R20 MG PO; +OMEPRAZOLE MAGN20 MG PO; -[UNRECOGNIZED DRUG - OTHER] PO
[2019-06-17] MEDS ORDERED: CITRACAL + D E1 EACH PO (16:24)
[2019-06-17] MEDS ORDERED: VITAMIN D31000 UNI1 PO (16:25)
[2019-06-17] MEDS ORDERED: TYLENOL EXTRA500 MG PO (16:33)
--- NOTE | 2019-06-17 17:52 | NUR ---
SCD APPLIED TO LEFT LEG.
--- NOTE | 2019-06-17 17:57 | NUR ---
Notified podiatry resident Dr. Siria Julian that dilaudid was not effective after 1 hour. Pt states she did not obtain any relief. States she will check with attending regarding pain meds as pt states she has allergy to NSAIDS. Allegy reaction is nausea and vomiting I notified her. States she will check and call back.
--- NOTE | 2019-06-17 18:18 | NUR ---
Spoke with Dr. Julian regarding orders for pain. Percocet ordered prn see order.
--- NOTE | 2019-06-17 18:22 | NUR ---
Medicated with percocet per prn order for complaints of pain to rt ankle. Pt states if feels like someone is pinching the back of her ankle really firmly. States pain is 7/10.
[2019-06-18] VITALS: BP 122/73
--- NOTE | 2019-06-18 01:00 | NUR ---
Patient resting quietly with no c/o discomfort. Respirations easy and regular. Vital signs stable. No overt distress. RUDY DIEGO
--- NOTE | 2019-06-18 03:57 | NUR ---
PRN PERCOCET GIVEN FOR RIGHT FOOT PAIN RATED A 10/10. WILL MONITOR FOR EFFECTIVENESS.
--- NOTE | 2019-06-18 04:24 | NUR ---
24HR CHART CHECK COMPLETED.
--- NOTE | 2019-06-18 04:52 | NUR ---
RE-EVALUATED AT THIS TIME. PT IS RESTING COMFORTABLY AT THIS TIME. NO SIGNS OF DISTRESS. RESPIRATIONS ARE EASY AT 18 BREATHS PER MINUTE. PRN PERCOCET EFFECTIVE. CONTINUE TO MONITOR THE PT.
[2019-06-18 06:08] VITALS: BP 132/82
--- NOTE | 2019-06-18 06:08 | NUR ---
PRN DILAUDID GIVEN FOR COMPLAINTS OF RIGHT FOOT PAIN RATED A 10/10. WILL MONITOR FOR EFFECTIVENESS.
--- NOTE | 2019-06-18 06:52 | NUR ---
RE-EVLAUATED AT THIS TIME. PT IS RESTING COMFORTABLY AT THIS TIME. RESPIRATIONS ARE REGULAR AT 18 BREATHS PER MIN. NO ACUTE DISTRESS NOTED. NO SIGNS OF PAIN. PRN DILAUDID EFFECTIVE. CONTINUE TO MONITOR THE PT.
[2019-06-18 08:00] VITALS: BP 122/71
[2019-06-18 10:06] LABS: BASO % 0.1 % (0.0-1.0); EOS # 0.1 10*3/uL (0.0-0.4); EOS % 1.7 % (1.0-4.0); HEMATOCRIT 45.3 % (37.0-47.0); HEMOGLOBIN 15.2 g/dl (12.0-16.0); LYMPH # 2.4 10*3/uL (1.3-4.4); LYMPH % 28.9 % (27.0-41.0); MEAN CELL VOLUME 89.7 fl (81.0-99.0); MEAN CORPUSCULAR HGB 30.1 pg (27.0-31.0); MEAN CORPUSCULAR HGB CONC 33.6 g/dl (33.0-37.0); MONO # 0.5 10*3/uL (0.1-1.0); NEUT # 5.3 10*3/uL (2.3-7.9); NEUT % 62.9 % (47.0-73.0); PLATELET COUNT AUTOMATED 125 10*3/uL (130-400); RED BLOOD COUNT 5.05 10*6/uL (4.10-5.10); RED CELL DISTRI WIDTH 12.8 % (0-14.5); WHITE BLOOD COUNT 8.5 10*3/uL (4.8-10.8)
[2019-06-18 10:38] LABS: BUN 9 mg/dl (7-24); CHLORIDE 102 mmol/L (98-107); CREATININE 0.78 mg/dL (0.55-1.02); POTASSIUM 3.4 mmol/L (3.5-5.1); SODIUM 137 mmol/L (136-145)
--- NOTE | 2019-06-18 13:18 | NUR ---
REFUSED AEROSOL TREATMENT
[2019-06-18 14:50] VITALS: BP 118/80
[2019-06-18 16:00] VITALS: BP 122/62
--- NOTE | 2019-06-18 19:50 | NUR ---
24 HOUR CHART CHECK COMPLETE
[2019-06-18 20:00] VITALS: BP 134/61
--- NOTE | 2019-06-18 20:05 | NUR ---
PATIENT ASSESSMENT COMPLETED WITHOUT INCIDENT,PATIENT DENIED ANY CHEST PAIN AT THIS TIME BUT DID STATE THAT SHE DOES BECOME SLIGHTLY SHORT OF BREATH IF SHE LAYS FLAT, PATIENT DOES USE CPAP AT HOME BUT DOES NOT WISH TO USE THE EQUIPMENT HERE. PATIENT REQUESTING A NICOTINE PATCH AT THIS TIME,WILL CALL DR. LEWIS. CALL LIGHT WITHIN REACH, FAMILY VISITING AT BEDSIDE,WILL CONTINUE TO MONITOR.
--- NOTE | 2019-06-18 20:30 | NUR ---
DR. LEWIS CALLED AND A NICOTINE PATCH WAS ORDERED PER PATIENT REQUEST.
--- NOTE | 2019-06-18 21:18 | NUR ---
PATIENT MEDICATED FOR PAIN IN HER RIGHT FOOT/ANKLE AT THIS TIME, RATED THE PAIN A 10/10,THROBBING,BURNING. TOES ARE PINK, WARM, GOOD SENSATION AND CAPILLARY REFILL.
--- NOTE | 2019-06-18 22:00 | NUR ---
PATIENT STATED THAT HER PAIN IN HER RIGHT FOOT/ANKLE IS A 8/10 AFTER BEING MEDICATED WITH PERCOCET.
--- NOTE | 2019-06-18 22:11 | NUR ---
PATIENT MEDICATED WITH DILAUDID AT THIS TIME FOR PAIN 8/10 IN HER RIGHT FOOT/ANKLE POST SURGICAL REPAIR OF FRACTURE.
--- NOTE | 2019-06-18 23:05 | NUR ---
PATIENT STATED THAT PAIN WAS 5/10 AT THIS TIME AFTER BEING MEDICATED WITH DILAUDID, PATIENT ALERT AND ORIENTED X4 AT THIS TIME.
[2019-06-19] VITALS: BP 127/63
--- NOTE | 2019-06-19 00:30 | NUR ---
PATIENT RESTING IN BED IN A POSITION OF COMFORT, EYES CLOSED, RESPIRATIONS EASY AND NON-LABORED AT THIS TIME. IV INFUSING WITHOUT INCIDENT AT THIS TIME. CALL LIGHT WITHIN REACH, WILL CONTINUE TO MONITOR.
--- NOTE | 2019-06-19 04:20 | NUR ---
PATIENT RESTING IN BED IN A POSITION OF COMFORT WITH EYES CLOSED, RESPIRATIONS EASY AND NON-LABORED, CALL LIGHT WITHIN REACH. NOT AWAKENED PER [facility] POLICY. WILL CONTINUE TO MONITOR.
[2019-06-19 06:44] LABS: BASO % 0.2 % (0.0-1.0); EOS # 0.2 10*3/uL (0.0-0.4); EOS % 2.6 % (1.0-4.0); HEMATOCRIT 41.1 % (37.0-47.0); HEMOGLOBIN 13.7 g/dl (12.0-16.0); LYMPH # 2.1 10*3/uL (1.3-4.4); LYMPH % 35.6 % (27.0-41.0); MEAN CELL VOLUME 90.1 fl (81.0-99.0); MEAN CORPUSCULAR HGB CONC 33.3 g/dl (33.0-37.0); MEAN PLATELET VOLUME 12.2 fl (9.6-12.3); MONO # 0.5 10*3/uL (0.1-1.0); MONO % 8.7 % (3.0-9.0); NEUT % 52.6 % (47.0-73.0); PLATELET COUNT AUTOMATED 109 10*3/uL (130-400); RED BLOOD COUNT 4.56 10*6/uL (4.10-5.10); RED CELL DISTRI WIDTH 12.9 % (0-14.5); WHITE BLOOD COUNT 5.8 10*3/uL (4.8-10.8)
[2019-06-19 06:49] LABS: BUN 7 mg/dl (7-24); CHLORIDE 104 mmol/L (98-107); CREATININE 0.67 mg/dL (0.55-1.02); POTASSIUM 3.3 mmol/L (3.5-5.1); SODIUM 138 mmol/L (136-145)
--- NOTE | 2019-06-19 07:54 | NUR ---
PATIENT REFUSING SCHEDULED DOSE OF TYLENOL. PATIENT STATED IT DOES NOT HELP HER AND SHE WOULD RATHER BE GIVEN PERCOCET FOR PAIN.
[2019-06-19 08:17] VITALS: BP 120/75
--- NOTE | 2019-06-19 08:33 | NUR ---
PERCOCET GIVEN PER PATIENT REQUEST FOR COMPLAINTS OF PAIN RATED 8/10. WILL ASSESS EFFECTIVENESS.
--- NOTE | 2019-06-19 08:45 | NUR ---
PHYSICAL THERAPY Attempted to see pt for evaluation just finishing breakfast and about to take pain pill R ankle -04/30. Eval partially completed, subjective info taken. Will follow later in AM once pain pill taking affect for full evaluation Maylin Scott PT
--- NOTE | 2019-06-19 08:45 | NUR ---
OCCUPATIONAL THERAPY Attempted to see pt for evaluation just finishing breakfast and about to take pain pill R ankle -04/30. Evaluation initiated with subjective information obtained. Will follow up at a later time to complete evaluation. Rochelle Beard OTR/L
--- NOTE | 2019-06-19 09:39 | NUR ---
PERCOCET SLIGHTLY EFFECTIVE PER PATIENT. PAIN RATED 6/10. WILL CONTINUE TO MONITOR.
--- NOTE | 2019-06-19 11:25 | NUR ---
PATIENT STATED SHE WANTED ME TO SPEAK WITH DR LEWIS ABOUT PUTTING HER BACK ON DILAUDID. I SPOKE WITH DR LEWIS REGARDING THE PATIENT'S REQUESTS. DR LEWIS STATED SHE COULD NOT DISCHARGE THE PATIENT ON DILAUDID AND THEREFORE HAD TO KEEP THE DILAUDID DISCONTINUED. I EXPLAINED THE RATIONALE T0 THE PATIENT. THE PATIENT THEN STATED SHE WANTED HER IV OUT IF SHE WAS NOT GOING TO BE RECIEVING ANY PAIN MEDICATION THROUGH IT. I EXLPAINED THE RATIONALE FOR NEEDING AN IV WHILE IN THE HOSPITAL. THE PATIENT THEN STATED, "IF YOU DON'T TAKE OUT MY IV THEN I WILL TAKE IT OUT MYSELF." PATIENT STILL REFUSING TO KEEP IV IN. IV TAKEN OUT PER PATIENT REQUEST.
[2019-06-19 12:00] VITALS: BP 133/77
--- NOTE | 2019-06-19 12:06 | NUR ---
PHYSICAL THERAPY Samy completed moderate level of [id number], recommned SNF at discharge. PT to work on transfers,AMB with AD maintaining NWB of RLE, strengthening and safety. Maylin Scott PT
--- NOTE | 2019-06-19 12:43 | NUR ---
Occupational Therapy evaluation completed on the 5th floor with full eval to follow. Moderate complexity level. Precautions: fall risk, right foot NWB, bed alarm, increased pain. Work on sitting balance, bed mobility and funcitonal transfers. REcommend SNF. Thank you for this referral, Rochelle Beard OTR/Karen
--- NOTE | 2019-06-19 13:22 | NUR ---
PHYSICAL THERAPY Patient was supine in bed following breathing treatment and reported feeling very exhausted with increased R LE pain. Patient requested to remain in bed to rest and will continue per POC as tolerated. Marcello Cai, GOVERNMENT AFFAIRS FELLOW
--- NOTE | 2019-06-19 13:29 | NUR ---
PERCOCET GIVEN PER PATIENT REQUEST FOR COMPLAINTS OF RIGHT ANKLE PAIN RATED 8/10. WILL ASSESS EFFECTIVENESS.
--- NOTE | 2019-06-19 14:30 | NUR ---
PERCOCET SLIGHTLY EFFECTIVE PER PATIENT. PAIN RATED 5/10. WILL CONTINUE TO MONITOR.
--- NOTE | 2019-06-19 15:16 | NUR ---
PHYSICAL THERAPY CO-SIGN I approve of the Physical Therapy notes written above. Maylin Scott PT
[2019-06-19 16:00] VITALS: BP 129/65
--- NOTE | 2019-06-19 17:28 | NUR ---
PERCOCET GIVEN PER PATIENT REQUEST FOR COMPLAINTS OF RIGHT ANKLE PAIN RATED 8/10. WILL ASSESS EFFECTIVENESS.
--- NOTE | 2019-06-19 17:31 | NUR ---
Patient resting quietly with no c/o discomfort. Respirations easy and regular. Vital signs stable. No overt distress. SALVATORE MONK
--- NOTE | 2019-06-19 18:13 | NUR ---
PATIENT STATED PERCOCET WAS SLIGHTLY EFFECTIVE. PAIN 5/10. WILL CONTINUE TO MONITOR.
[2019-06-19 20:00] VITALS: BP 124/70
--- NOTE | 2019-06-19 21:54 | NUR ---
PATIENT REQUESTED PERCOCET AT THIS TIME FOR RIGHT ANKLE PAIN
--- NOTE | 2019-06-19 22:50 | NUR ---
PATIENT STATED THAT PERCOCET WAS SOMEWHAT EFFECTIVE FOR HER ANKLE PAIN, IS REQUESTING SCHEDULED TYLENOL AT THIS TIME.
[2019-06-20] VITALS: BP 109/64
--- NOTE | 2019-06-20 01:54 | NUR ---
PATIENT REQUESTING PERCOCET AT THIS TIME FOR RIGHT ANKLE PAIN AN 8/10 AT THIS TIME. PATIENT ALERT AND ORIENTED.
--- NOTE | 2019-06-20 02:40 | NUR ---
PATIENT STATED THAT PERCOCET WAS SLIGHTLY EFFECTIVE AT THIS TIME.
--- NOTE | 2019-06-20 06:45 | NUR ---
PATIENT LETHARGIC AND DIFFICULT TO KEEP AWAKE AT THIS TIME. EDILMA CHEN STATED THAT SHE WAS IN THE ROOM BEHIND THE CURTAIN CLEANING UP FROM BATHING PATIENT AND HEARD WHAT SOUNDED LIKE MEDICATION BOTTLES BEING OPENED AND MOVED AROUND, WHEN SHE STEPPED AROUND THE CURTAIN PATIENT HURRIEDLY CLOSED HER PURSE. THIS RN OBSERVED UPON APPROACHING THE PATIENT BEDSIDE A CHARGING CORD COMING OUT OF THE PATIENT PURSE AND WHAT APPEARED TO BE A RECHARGABLE VAPE DEVICE STICKING OUT. PATIENT WAS ASKED IF SHE HAD ANY MEDICATIONS IN HER PURSE AND SHE DENIED HAVING ANY. PATIENT ABLE TO ANSWER QUESTIONS APPROPRIATELY BUT WITH DELAYED RESPONSE AND HAVING TO BE AROUSED TO OBTAIN THE ANSWERS. PATIENT ADVISED OF THE COMPLICATIONS OF TAKING MEDICATIONS OTHER THAN WHAT WE WERE GIVING HER AND NOT TO USE THE VAPE SHE HAS A NICOTINE PATCH ON AND THIS FACILITY WAS A NON-SMOKING FACILITY. HISTOLOGY SPECIALIST SONDRA SANTOS.
[2019-06-20 08:00] VITALS: BP 106/63
--- NOTE | 2019-06-20 09:14 | NUR ---
PT COMPLAINS OF 9/10 RIGHT LEG PAIN. MEDICATED PER ORDER. WILL MONITOR FOR RELIEF. VOICES NO OTHER CONCERNS AT THIS TIME. RESTING IN BED PLAYING ON CELL PHONE. CALL LIGHT WITHIN REACH
--- NOTE | 2019-06-20 09:30 | NUR ---
CALLED PHARMACY AND ASKED THEM TO SEND UP PATIENTS [facility].
--- NOTE | 2019-06-20 09:44 | NUR ---
PT REQUESTING TO HAVE BEDSIDE COMMODE PLACED IN ROOM.
--- NOTE | 2019-06-20 10:00 | NUR ---
PATIENT EDUCATED ON SMOKING POLICY. CURRENTLY DENIES HAVING ANY TOBACCO PRODUCTS. VERBALIZED UNDERSTANDING.
--- NOTE | 2019-06-20 10:24 | NUR ---
Shift chart check completed.
--- NOTE | 2019-06-20 11:30 | NUR ---
THERAPY IN TO SEE PATIENT
[2019-06-20 12:00] VITALS: BP 126/83
--- NOTE | 2019-06-20 12:28 | NUR ---
PHYSICAL THERAPY Patient supine in bed at time of arrival. Patient agreeable to participate in therapy session. Performance of bed mobility: supine<->sit requiring SBA-CGA with increased time for completion. Patient exhibits increased pain in (R) LE with movement and reports 3/10 pain. Patient performed STS transer EOB->FWW x 2 trials-- requiring [id number] with emphasis on maintaining NWBing status of (R) LE, technique and safety. Patient tolerated static standing 1 minute, up to 1 min 15 sec with each stand prior to requesting to sit. NWBing (R) LE. Once standing, patient requiring CGA for safety. Pt performed seated/supine BLE ther-ex, for strength, endurance and improved ROM; seated: LAQ (AAROM R LE). supine: quad sets, glute sets, ankle PF/DF and hip ABD/ADD (LLE only), heel slides x 10 reps. Cues and supervision for technique and progression of exercises. CLERK MANAGER monitoring patient tolerance throughout therapy session with no increase in pain and/or new c/o's. Patient supine in bed at session end with call light and tray table within reach. Graciela Kirkpatrick, CLERK MANAGER
--- NOTE | 2019-06-20 13:12 | NUR ---
CALLED PHARMACY AGAIN TO ASK FOR PATIENTS AQUILES.
--- NOTE | 2019-06-20 13:15 | NUR ---
PT COMPLAINS OF 7/10 R LEG PAIN. MEDICATED PER ORDER. WILL CONTINUE TO MONITOR FOR RELIEF. VOICES NO OTHER CONCERNS AT THIS TIME. RESTING IN BED WATCHING TV. CALL LIGHT WITHIN REACH
[2019-06-20 16:00] VITALS: BP 119/65
--- NOTE | 2019-06-20 16:30 | NUR ---
BLOOD SUGAR 221
--- NOTE | 2019-06-20 17:15 | NUR ---
PT COMPLAINS OF 6/10 LEG PAIN. MEDICATED PER ORDER. WILL CONTINUE TO MONITOR FOR RELIEF. VOICES NO OTHER CONCERNS AT THIS TIME. RESTING IN BED. CALL LIGHT WITHIN REACH
--- NOTE | 2019-06-20 18:14 | NUR ---
PERCOCET EFFECTIVE PER PT
--- NOTE | 2019-06-20 18:26 | NUR ---
NURSES AIDE CAME TO THIS NURSE STATING THAT THEY THOUGHT PATIENT WAS VAPING IN ROOM. THIS NURSE WENT DOWN TO PATIENTS ROOM, WHICH DID SMELL LIKE VAPE AND WAS SMOKY. PATIENT AGAIN DENIED ANY USAGE. SUPERVISIOR NOTIFIED.
--- NOTE | 2019-06-20 19:40 | NUR ---
24 HOUR CHART CHECK COMPLETE
[2019-06-20 20:00] VITALS: BP 122/77
--- NOTE | 2019-06-20 20:15 | NUR ---
PATIENT ASSESSMENT COMPLETED AT THIS TIME. PATIENT DENIES ANY CHEST PAIN/PRESSURE OR SHORTNESS OF BREATH AT THIS TIME. REQUESTING PAIN MEDICATION AT THIS TIME, PATIENT INFORMED NEXT DOSE OF PAIN MEDICATION WAS NOT AVAILABLE UNTIL 2114. PATIENT ATTENDANT INFORMED THIS NURSE THAT UPON ENTERING THE ROOM AT SHIFT CHANGE PATIENT WAS NOTED TO BE TAKING A VAPE DEVICE OUT OF HER PURSE AND HURRIEDLY REPLACED IT WHEN SHE NOTICED HER. THIS RN AGAIN REINFORCED TO PATIENT THAT SMOKING OF ANY KIND WAS PROHIBITED IN THIS FACILITY AND THAT THE VAPE WAS TO BE TAKEN HOME BY HER SON 2 DAYS AGO, PATIENT STATED SHE PAID FOR IT AND SHE WAS KEEPING IT WITH HER AND NO ONE WAS TAKING IT ANYWHERE. PATIENT INFORMED OF POLICY ON SMOKING AND POSSIBILITY OF ADMINISTRATIVE DISCHARGE. TILE TRIMMER LAVONNE AWARE OF SITUATION AND ALSO SPOKE WITH PATIENT.
--- NOTE | 2019-06-20 23:03 | NUR ---
PERCOCET GIVEN AT THIS TIME FOR RIGHT ANKLE PAIN 10/10, PATIENT DROWSY BUT AROUSABLE. CALL LIGHT WITHIN REACH WILL CONTINUE TO MONITOR
[2019-06-21] VITALS: BP 129/72
--- NOTE | 2019-06-21 00:20 | NUR ---
PATIENT RESTING IN BED IN A POSITION OF COMFORT AT THIS TIME. NO SIGNS OR SYMPTOMS OF PAIN NOTED AT THIS TIME AFTER ADMINISTRATION OF PAIN MEDICATION. RESPIRATIONS EASY AND NON-LABORED AT THIS TIME. CALL LIGHT WITHIN REACH, WILL CONTINUE TO MONITOR.
--- NOTE | 2019-06-21 03:39 | NUR ---
PATIENT MEDICATED WITH PERCOCET AT THIS TIME FOR COMPLAINT OF 8/10 PAIN IN HER RIGHT ANKLE AND THIGH. PATIENT ALERT AND ORIENTED AT THIS TIME. CALL LIGHT WITHIN REACH WILL CONTINUE TO MONITOR.
--- NOTE | 2019-06-21 04:15 | NUR ---
PATIENT RESTING IN BED IN A POSITION OF COMFORT, RESPIRATIONS EASY AND NON-LABORED AT THIS TIME. NO SIGNS OR SYMPTOMS OF PAIN NOTED AT THIS TIME POST PAIN MEDICATION ADMINISTRATION AT 0338. CALL LIGHT WITHIN REACH, WILL CONTINUE TO MONITOR.
[2019-06-21 08:00] VITALS: BP 128/72
[2019-06-21 16:00] VITALS: BP 114/68
--- NOTE | 2019-06-21 17:12 | NUR ---
PT REQUESTED AND WASMEDICATED WITH PEROCOCET FOR C/O RIGHT FOOT PAIN. CALL LIGHT IN REACH.WILL MONITOR
[2019-06-21 20:00] VITALS: BP 125/80
--- NOTE | 2019-06-21 21:27 | NUR ---
MEDICATED WITH PRN PERCOCET FOR C/O PAIN RATED 10/10 ON A 0/10 PAIN SCALE. WILL MONITOR
--- NOTE | 2019-06-21 23:49 | NUR ---
24 HR chart check completed.
[2019-06-22] VITALS: BP 119/66
--- NOTE | 2019-06-22 01:34 | NUR ---
MEDICATED WITH PRN PERCOCET FOR C/O ANKLE PAIN RATED 7/10 ON A 0/10 PAIN SCALE. WILL MONITOR
--- NOTE | 2019-06-22 05:50 | NUR ---
MEDICATED WITH PRN PERCOCET FOR C/O PAIN IN ANKLE RATED 9/10 ON A 0/10 PAIN SCALE. ALSO STATES SHE DOES NOT WANT TO TAKE HER AMARYL UNTIL SHE EATS BREAKFAST
--- NOTE | 2019-06-22 05:53 | NUR ---
PATIENT REFUSING TO GET OUT OF BED TO USE BEDSIDE COMMODE. STATES THAT THE PAIN IN HER FOOT IS TOO BAD. EDUCATED ON THE IMPORTANCE OF GETTING OUT OF BED. PATIENT VERBALIZED UNDERSTANDING BUT CONTINUES TO REQUEST BEDPAN
[2019-06-22 06:07] LABS: BASO % 0.3 % (0.0-1.0); EOS # 0.2 10*3/uL (0.0-0.4); EOS % 5.2 % (1.0-4.0); HEMOGLOBIN 13.2 g/dl (12.0-16.0); LYMPH # 1.4 10*3/uL (1.3-4.4); LYMPH % 41.1 % (27.0-41.0); MEAN CELL VOLUME 92.4 fl (81.0-99.0); MEAN CORPUSCULAR HGB 30.5 pg (27.0-31.0); MEAN PLATELET VOLUME 11.9 fl (9.6-12.3); MONO # 0.2 10*3/uL (0.1-1.0); MONO % 6.9 % (3.0-9.0); NEUT # 1.6 10*3/uL (2.3-7.9); NEUT % 45.9 % (47.0-73.0); PLATELET COUNT AUTOMATED 112 10*3/uL (130-400); RED BLOOD COUNT 4.33 10*6/uL (4.10-5.10); WHITE BLOOD COUNT 3.5 10*3/uL (4.8-10.8)
[2019-06-22 06:29] LABS: CREATININE 0.58 mg/dL (0.55-1.02)
[2019-06-22 08:00] VITALS: BP 119/72
--- NOTE | 2019-06-22 08:35 | NUR ---
Spoke to Dr. Moe regarding discharge planning. Stars Coordinator in to see patient. Discussed short term SNF and she is agreeable. When provided with a list of facilities she chose [facility]. retail worker notified.
[2019-06-22] MEDS ORDERED: ENOXAPARIN40 MG/0.2 SC (08:48)
--- NOTE | 2019-06-22 09:10 | NUR ---
PHYSICAL THERAPY Patient seen this am 1:1 for therapy visit and was supine in bed upon therapist arrival. Patient identified by name / and voices 7/10 R LE pain while presenting with large R ankle cast. Patient transfers supine to sit EOB with CGA, then sit to stand MIN A x 2 with use of wh walker standing support. Patient is also NWB on R LE and demonstrated 75% compliance during standing transfer. Patient completed several SPT to BSC, wh walker, CGA then SPT to bedside chair, CGA, wh walker, demonstrating slight "bunny" hop technique. Patient remained in chair with call light, tray table, body alarm and telephone in semi reclined position to elevate R LE for edema / pain control. Patient reports no change in pain c/o and will continue per POC as tolerated. Total treatment time 16 minutes. Marcello Cai, CONSUMER SCIENCE TEACHER
--- NOTE | 2019-06-22 09:20 | NUR ---
OT NOTE Pt was seen this A.M. 1:1 for 24 minute OT session. Upon arrival pt was supine in bed. Pt identified by name and and had complaints of 7/10 R foot pain. Pt transferred supine to sit EOB with CGA. Sit to stand completed from bed level with Daniel X 2 and use of w/w with fair carry over of NWB status to RLE. Pt was then educated on standing pivot technique. Standing pivot completed from the EOB to the bedside commode with Daniel X 2 and use of w/w for UE support. Pt then completed standing pivot from the bedside commode back to the EOB with Daniel X 2 and use of w/w. Throughout pt required verbal prompts for sequencing technique. Standing pivot then completed from the EOB to the recliner with Daniel x 2 and use of w/w. There she was left with call light in hand, tray table in place, and bed alarm activated for safety. Continue with rec D/C plan to SNF. NICCI Alexandre/Karen
--- NOTE | 2019-06-22 09:27 | NUR ---
RETREAD SUPERVISOR received notice the patient wants to be referred to [facility]. RETREAD SUPERVISOR faxed new referral to [facility]. -SAM Constantino
--- NOTE | 2019-06-22 10:00 | NUR ---
PT C/O RIGHT ANKLE PAIN 02/28, MEDICATED WITH PERCOCET AT THIS TIME PER ORDER. WILL MONITOR.
--- NOTE | 2019-06-22 10:30 | NUR ---
Engineer Second Assistant in to talk to patient. Patient states lives at home with her pacfst-bb-osc. There are 28 steps in the home. Physician: Dr. Ronald Oneal [facility] Patient's level of ADLs: MINIMAL ASSIST Patient has working utilities: yes DME: cane, nebulizer Follow-up physician's appointment after d/c: she prefers to make her own follow up appt after discharge Does patient want to access PORTAL?: no Discharge plan discussed with patient. She lives at home with her [id number]. She is normally independent in her ADLs and ambulates with a cane. Discussed short term SNF and she is agreeable. When provided with a list of facilities she chose [facility]. pest control worker helper notified. When medically stable, accepted, and precert is obtained she will be discharged to [facility]. She is unsure of discharge transportation at this time. NYDIA STREETER
--- NOTE | 2019-06-22 11:30 | NUR ---
PER PATIENT, PAIN MEDICATION HAS BEEN EFFECTIVE. NO FURTHER COMPLAINTS AT THIS TIME.
--- NOTE | 2019-06-22 13:15 | NUR ---
PHYSICAL THERAPY Patient seen this pm 1:1 for therapy visit and was sitting on BSC upon therapist arrival. Patient identified by name / and reports no new c/o's at this time. Pateint transfers sit to stand from low surface, MIN A then completed SPT to EOB sit, including several "bunny" hop steps with use of wh walker, CGA. Patient remains NWB on R LE and was able to maintain 100% compliance this session during transfer. Patient also instructed on seated B LE therex, completing L LE therex, all planes x 15 reps each, plus R LE, x 10 reps of SAQ to increase strength. Patient able to scoot EOB to L side for positioning prior to returning to supine in bed, MIN A x 1. Patient remained in bed with call light, tray table and telephone. Will continue per POC as tolerated, total treatment time 16 minutes. Marcello Cai, WASTEWATER TREATMENT OPERATOR
--- NOTE | 2019-06-22 13:17 | NUR ---
OT NOTE Pt was seen this P.M. 1:1 for second OT session consisting of 15 minutes. Upon arrival pt was sitting upright on the bedside commode. Pt identified by name and and had complaints of increased fatigue. Sit to stand completed from bedside commode with modA and use of w/w for UE support. Standing pivot then completed from the bedside commode to the EOB with Daniel and use of w/w. Then challenged pt's dynamic sitting balance needed for increased I and enhanced safety, pt was able to maintain G- sitting balance throughout. Pt then transferred sit to supine with SBA. There she was left with call light in hand, tray table in place, and bed alarm activated for safety. Continue with rec D/C plan to SNF. NICCI Alexandre/Karen
--- NOTE | 2019-06-22 13:17 | NUR ---
SPOKE WITH PODIATRY RESIDENT REGARDING PATIENT'S DRESSING CHANGE; WANTS THE DRSG TO STAY IN PLACE UNTIL FOLLOW UP AT VISIT.
--- NOTE | 2019-06-22 14:15 | NUR ---
PT MEDICATED WITH PERCOCET PER PRN ORDER FOR RT FOOT/ANKLE PAIN 04/30. WILL MONITOR FOR EFFECTIVENESS.
[2019-06-22 16:00] VITALS: BP 110/61
--- NOTE | 2019-06-22 18:14 | NUR ---
PT C/O 6/10 PAIN IN RIGHT HIP/THIGHS AND BILAT SHOULDERS. REQUESTING AND GIVEN PERCOCET. WILL MONITOR FOR EFFECTIVENESS.
[2019-06-22 20:00] VITALS: BP 111/58
--- NOTE | 2019-06-22 22:02 | NUR ---
MEDICATED WITH PRN PERCOCET FOR C/O PAIN RATED 8/10 ON A 0/10 PAIN SCALE
[2019-06-23] VITALS: BP 116/69
--- NOTE | 2019-06-23 00:44 | NUR ---
PATIENT CAUGHT VAPING IN ROOM. VAPE PEN LOCKED IN [facility]. PATIENT REFUSING TO GIVE THIS RN HER CIGARETTES, EDGER FEEDER CHAPARRITA MADE AWARE
--- NOTE | 2019-06-23 01:23 | NUR ---
24 HR chart check completed.
--- NOTE | 2019-06-23 02:13 | NUR ---
MEDICATED WITH PRN PERCOCET FOR C/O PAIN RATED 10/10 ON A 0/10 PAIN SCALE
[2019-06-23 08:00] VITALS: BP 128/66
--- NOTE | 2019-06-23 08:00 | NUR ---
Notified Dr. Abhi rosen is pending for [facility]. nursery worker following.
--- NOTE | 2019-06-23 09:30 | NUR ---
OT NOTE Pt was seen this A.M. 1:1 for 20 minute OT session. Upon arrival pt was supine in bed. Pt identified by name and and had complaints of 7/10 RLE pain. Pt transferred supine to sit EOB with SBA. Pt completed multiple sit to stand transfers from bed level with Daniel and use of w/w for UE support. Challenged pt's static standing tolerance needed for increased I in self care tasks and functional transfers. Pt was able to tolerate aprox 2 minutes at a time before sitting due to fatigue. Pt then completed standing pivot from the EOB to the bedside commode with Daniel and use of w/w. Pt transferred on/off bedside commode with Daniel and use of w/w. Pt then transferred back into bed sit to supine with SBA. There she was left with call light in hand, tray table in place, and bed alarm activated for safety. Continue with rec D/C plan to SNF. NICCI Alexandre/Karen
--- NOTE | 2019-06-23 09:38 | NUR ---
PHYSICAL THERAPY Patient seen this am 1;1 for therapy visit and was resting supine in bed upon therapist arrival. Patient identified by name / and reports R LE Quad tendon pain, 01/28. Patient transfers supine to sit EOB with MIN A, then sit to stand CGA, needing v/c for proper hand placement to improve safe transfer technique. Patient is NWB on R LE, presenting with large, plaster ankle cast which makes it more difficult to maintain NWB status. Patient was able to complete SPT to BSC, use of wh walker standing support, CGA. Patient also instructed on safe step sequence ambulating 5'x 1, wh walker, CGA, demonstrating "bunny" hop technique. Patient tolerated all treatment this session without further c/o and returned to supine in bed. Patient remained in bed with call light, tray table, bed alarm and R LE elevated on pillow with cold pack on Quad tendon. Patient instructed to remove ice pack in 20 minutes and will continue per POC as tolerated, total treatment time 16 minutes. Marcello Cai, FLAVORING OIL FILTERER
--- NOTE | 2019-06-23 10:37 | NUR ---
PRECERT is pending for [facility]. -SAM Constantino
[2019-06-23 12:00] VITALS: BP 120/68
--- NOTE | 2019-06-23 12:10 | NUR ---
Nutritional Support Services Note: Pt has healing surgical incision, s/p fx right ankle. She receives a regular diet as ordered. Appetite is good for meals, she is eating 100%. Discussed healthy eating habits to continue to promote healing. Will follow if needed. No other nutrition intervention needed at this time. Basilia Kimball Rdn Ld
--- NOTE | 2019-06-23 13:17 | NUR ---
OT NOTE Pt was seen this P.M. 1:1 for 17 minute OT session. Upon arrival pt was supine in bed. Pt identified by name and and had complaints of 7/10 RLE pain. Pt transferred supine to sit EOB with SBA. Pt completed multiple sit to stand transfers from bed level with Daniel and use of w/w. Challenged pt's static standing tolerance needed for increased I in self care tasks and functional transfers. Pt was able to tolerate aprox 2 minutes at a time before sitting due to fatigue. Pt then transferred back into bed sit to supine with SBA. There she wsa left with call light in hand, tray table in place, and bed alarm activated for safety. Continue with rec D/C plan to SNF. NICCI Alexandre/Karen
--- NOTE | 2019-06-23 13:20 | NUR ---
PHYSICAL THERAPY Patient seen this pm 1;1 for therapy visit and was supine in bed upon therapist arrival. Patient voices 6/10 R ankle burning / pain and identified by name / prior to treatment. Patient transfers supine to sit EOB and sit to stand CGA, demonstrating slow rise during sit to stand, with only 50% compliance with NWB on R LE. Patient instructed on safe step sequence using 3 pt gait pattern, wh walker, CGA, 10'x 1, while demonstrating increased difficulty maintaining NWB status on R LE, approx 50% of time. Patient also very cautious for fear of falling and returned to supine in bed, MIN A with R LE secondarty to heavy plaster cast. Patient remained in bed with call light, tray table, telephone and bed alarm for safety. Will continue per POC as tolerated, total treatment time 14 minutes. Marcello Cai, CAMPGROUND HAND
--- NOTE | 2019-06-23 13:23 | NUR ---
PT C/O RIGHT ANKLE/FOOT PAIN 02/28 AND REQUESTING PAIN MED. GIVEN PERCOCET AT THIS TIME PER ORDER; WILL MONITOR.
--- NOTE | 2019-06-23 14:15 | NUR ---
PER PATIENT, PRN MEDICATION HAS BEEN EFFECTIVE. NO FURTHER COMPLAINTS. DROWSY AT THIS TIME.
--- NOTE | 2019-06-23 17:23 | NUR ---
PATIENT MEDICATED WITH PERCOCET AT THIS TIME PER ORDER FOR COMPLAINTS OF PAIN IN LOWER BACK AND RIGHT LEG PAIN 02/28. WILL MONITOR.
--- NOTE | 2019-06-23 18:15 | NUR ---
PER PATIENT, SHE IS MUCH MORE RELIEVED. PAIN MED EFFECTIVE AT THIS TIME.
--- NOTE | 2019-06-23 19:35 | NUR ---
PATIENT RESTING IN BED WITH NO NEEDS MADE. BED IN LOWEST POSITION, CALL LIGHT IN REACH
[2019-06-23 20:00] VITALS: BP 130/71
--- NOTE | 2019-06-23 21:29 | NUR ---
MEDICATED WITH PRN PERCOCET FOR C/O PAIN IN RIGHT LEG RATED 9/10 ON A 0/10 PAIN SCALE. WILL MONITOR
[2019-06-24] VITALS: BP 117/67
--- NOTE | 2019-06-24 01:31 | NUR ---
MEDICATED WITH PRN PERCOCET FOR C/O PAIN RATED 10/10 ON A 0/10 PAIN SCALE
--- NOTE | 2019-06-24 04:00 | NUR ---
24 HR chart check completed.
--- NOTE | 2019-06-24 05:48 | NUR ---
MEDICATED WITH PRN PERCOCET FOR C/O PAIN RATED 9/10 ON A 0/10 PAIN SCALE. WILL MONITOR
[2019-06-24 06:48] LABS: BASO % 0.2 % (0.0-1.0); EOS # 0.2 10*3/uL (0.0-0.4); EOS % 3.6 % (1.0-4.0); HEMATOCRIT 39.5 % (37.0-47.0); HEMOGLOBIN 12.9 g/dl (12.0-16.0); LYMPH # 1.4 10*3/uL (1.3-4.4); LYMPH % 31.2 % (27.0-41.0); MEAN CELL VOLUME 92.9 fl (81.0-99.0); MEAN CORPUSCULAR HGB 30.4 pg (27.0-31.0); MEAN CORPUSCULAR HGB CONC 32.7 g/dl (33.0-37.0); MEAN PLATELET VOLUME 11.5 fl (9.6-12.3); MONO # 0.4 10*3/uL (0.1-1.0); MONO % 9.1 % (3.0-9.0); NEUT # 2.4 10*3/uL (2.3-7.9); NEUT % 55.2 % (47.0-73.0); PLATELET COUNT AUTOMATED 130 10*3/uL (130-400); RED BLOOD COUNT 4.25 10*6/uL (4.10-5.10); RED CELL DISTRI WIDTH 13.2 % (0-14.5); WHITE BLOOD COUNT 4.4 10*3/uL (4.8-10.8)
[2019-06-24 06:58] LABS: CREATININE 0.61 mg/dL (0.55-1.02)
[2019-06-24 08:00] VITALS: BP 108/56
--- NOTE | 2019-06-24 08:02 | NUR ---
PRECERT is pending. Faxed updates to [facility]. -SAM Constantino
--- NOTE | 2019-06-24 08:15 | NUR ---
PHYSICAL THERAPY Patient seen this am 1:1 for therapy visit and was sitting up on EOB following BSC use upon therapist arrival. Patient identified by name / and presents with R LE ankle cast. Patient is strictly NWB on R LE, transfering supine to sit EOB CGA. Patient reviewed NWB status prior to performing sit to stand CGA, then ambulates with use of wh walker, CGA, demonstrating "bunny" hop gait pattern, increased fatigue, 15'x 1. Patient returned to supine in bed and remained with call light, tray table, telephone and bed alarm for safety. Will continue per POC as tolerated, total treatment time 14 minutes. Marcello Cai, AUTOMATIC PROFILE SHAPER OPERATOR
--- NOTE | 2019-06-24 08:15 | NUR ---
OT NOTE Pt was seen this A.M. 1:1 for 15 minute OT session. Upon arrival pt was sitting upright on the bedside commode. Pt identified by name and and had complaints of 5/10 RLE pain and 8/10 L hip pain. Sit to stand completed from commode level with CGA and use of w/w. Toilet hygiene completed with modA due to LOB occuring while standing without UE support and clothing management completed with CGA for safety. Pt then completed functional mobility back to the EOB with CGA and use of w/w with good carry over NWB to RLE. Challenged pt's static standing tolerance needed for increased activity tolerance and pt was able to tolerate aprox 2 minutes before sitting due to fatigue and pain. Pt then transferred sit to supine with SBA. There she was left with call light in hand, tray table in place, and bed alarm activated for safety. Continue with rec D/C plan to SNF. MARILYN Alexandre
--- NOTE | 2019-06-24 09:07 | NUR ---
PRECERT is pending. SAM completed HENs. -SAM Constantino
--- NOTE | 2019-06-24 09:30 | NUR ---
PERCOSET 5/325 MG GIVEN FOR C/O LEG PAIN,03/31.
--- NOTE | 2019-06-24 10:42 | NUR ---
PRECERT has been obtained. FIELD HAND notified [facility]. She will contact this FIELD HAND when appropriate to arrange transport. FIELD HAND notified Dispatch Supervisor Deena. -SAM Constantino
--- NOTE | 2019-06-24 11:16 | NUR ---
OT NOTE Pt was seen this A.M. for second OT session consisting of 16 minutes. Upon arrival pt was supine in bed. Pt identified by name and and had no complaints at this time. Pt transferred supine to sit EOB with SBA. Sit to stand then completed from bed level with CGA for safety and use of w/w for UE support. Functional mobility completed to the bedside commode (aprox 10 feet) with CGA and use of w/w with two standing rest breaks throughout due to quick onset of fatigue. Pt transferred on/off bedside commode with CGA. While sitting on the commode pt doffed pull ups with SBA and donned new pullups with Daniel for assist with donning over the wrap on her RLE and was then able to manage with CGA for safety. Pt completed functional mobility back to the EOB where she transferred sit to supine with SBA. There she was left with call light in hand, tray table in place, and bed alarm activated for safety. Throguhout entire session pt had good carry over of NWB status to her RLE. Continue with rec D/C plan to SNF. NICCI Alexandre/Karen
--- NOTE | 2019-06-24 12:41 | NUR ---
SOFTWARE SALES CONSULTANT spoke with MAC Oakes about patient discharge. SOFTWARE SALES CONSULTANT spoke with the patient who stated she had no on to transport her to [facility]. SOFTWARE SALES CONSULTANT spoke with [facility] there is no transportation available at this time. SOFTWARE SALES CONSULTANT spoke with [facility] who said they could transport the patient at 2pm. SOFTWARE SALES CONSULTANT will notify [facility] and fax discharge orders. SOFTWARE SALES CONSULTANT will notify Jm. Patient was on phone with the family and stated she would notify them of her discharged to [facility]. -SAM Constantino
--- NOTE | 2019-06-24 13:42 | NUR ---
PERCOSET 5/325 MG GIVEN FOR C/O PAIN,01/28.
--- NOTE | 2019-06-24 14:27 | NUR ---
Discharge instructions reviewed with patient/family. Patient receptive and verbalizes understanding. Follow-up care arranged. Written instructions given to patient/family. MURPHY WRIGHT
--- NOTE | 2019-06-25 08:02 | NUR ---
PHYSICAL THERAPY CO-SIGN I approve of the Physical Therapy notes written above. Maylin Scott PT
== END 2019-06-24 14:27 | disposition other institution (70) | DRG 493 ==
LOC: SDC 01:24 → 5E 11:54 → SDC 13:00 → 5E 06-24 14:27
PROVIDERS: Internal Medicine; ADMIT Internal Medicine
PROC: 0QSJ04Z Reposition Right Fibula with Internal Fixation Device, Open Approach (ICD-10-PCS; principal; 2019-06-17)
PROC: 0MQQ0ZZ Repair Right Ankle Bursa and Ligament, Open Approach (ICD-10-PCS; 2019-06-17)
PROC: 0SSF0ZZ Reposition Right Ankle Joint, Open Approach (ICD-10-PCS; 2019-06-17)
DX: S82.841A Displaced bimalleolar fracture of right lower leg, initial encounter for closed fracture (principal); Z68.41 Body mass index [BMI] 40.0-44.9, adult; E87.6 Hypokalemia; E11.65 Type 2 diabetes mellitus with hyperglycemia; G89.29 Other chronic pain; J44.9 Chronic obstructive pulmonary disease, unspecified; E03.9 Hypothyroidism, unspecified; F17.210 Nicotine dependence, cigarettes, uncomplicated; S93.421A Sprain of deltoid ligament of right ankle, initial encounter; F41.1 Generalized anxiety disorder; R62.7 Adult failure to thrive; J98.01 Acute bronchospasm; F31.9 Bipolar disorder, unspecified; W10.8XXA Fall (on) (from) other stairs and steps, initial encounter; Y93.89 Activity, other specified; Y92.89 Other specified places as the place of occurrence of the external cause; Z88.8 Allergy status to other drugs, medicaments and biological substances; Z91.040 Latex allergy status; Z79.4 Long term (current) use of insulin; Z79.899 Other long term (current) drug therapy; Y99.8 Other external cause status

== ENCOUNTER 2019-07-11 19:27 | Emergency (ER) | payer OTHER ==
[~2019-07-11] VITALS: Ht 168.9 cm; Wt 118.8 kg
[~2019-07-11 19:27] MED LIST changes: +CITRACAL + D E1 EACH PO; +ENOXAPARIN40 MG/0.2 SC; +TYLENOL EXTRA500 MG PO; +VITAMIN D31000 UNI1 PO
[2019-07-11 21:05] VITALS: BP 112/57
== END 2019-07-12 00:23 | disposition other institution (70) ==
LOC: ED 19:27
DX: S80.02XA Contusion of left knee, initial encounter (principal); S80.01XA Contusion of right knee, initial encounter; M79.671 Pain in right foot; J44.9 Chronic obstructive pulmonary disease, unspecified; I10 Essential (primary) hypertension; E11.9 Type 2 diabetes mellitus without complications; E07.9 Disorder of thyroid, unspecified; F17.200 Nicotine dependence, unspecified, uncomplicated; Z88.8 Allergy status to other drugs, medicaments and biological substances; Z91.040 Latex allergy status; Z79.899 Other long term (current) drug therapy; W19.XXXA Unspecified fall, initial encounter; Y93.89 Activity, other specified; Y92.128 Other place in nursing home as the place of occurrence of the external cause; Y99.8 Other external cause status

== ENCOUNTER 2019-08-18 19:30 | Inpatient (IN) | payer OTHER ==
[~2019-08-18] VITALS: Ht 170.1 cm; Wt 112.1 kg
[2019-08-18 19:37] VITALS: BP 113/68
[2019-08-18 19:56] VITALS: BP 116/64
--- NOTE | 2019-08-18 23:37 | NUR ---
PATIENT HAS WOUND RIGHT GREAT TOE, REFUSES PHOTOS.
[2019-08-19 00:50] VITALS: BP 101/63
--- NOTE | 2019-08-19 00:50 | NUR ---
A 54, admitted to 5E, under the services of Dr. DEVONTE HAWKINS,ASHWINI Chavarria with a diagnosis of UNABLE TO AMBULATE. Chief complaint is FALL. Patient arrived via bed from ER. Monitor applied. Initial assessment completed. Vital signs taken and recorded. DR. DEVONTE HAWKINS,ASHWINI Chavarria notified of admission to the unit. Orders received. See assessment for past medical history, medications and allergies. Patient and/or family oriented to unit. [facility] visitation policy reviewed. Clothing/patient valuable form completed. ANGELINA GOLD
--- NOTE | 2019-08-19 01:00 | NUR ---
PT REFUSING WOUND PHOTOS TO BE TAKEN AT THIS TIME. PT STATES THAT SHE "JUST WANTS BANDAIDS" PT ALSO REFUSING NURSE TO LOOK AT [facility]. PT STATES "I DONT HAVE ANY WOUNDS THERE" PT HAS BILATERAL REDDENED/BLANCHABLE AREAS ON KNEES. REDDENED/BLANCHABLE AREAS TO BILATERAL ELBOWS WELL. PT HAS SCABS ON LEFT ARM R/T DOG, NOT OPENED.
[2019-08-19] MEDS ORDERED: CYCLOBENZAPRINE10 MG PO (01:10)
[2019-08-19] MEDS ORDERED: ZESTORETIC 20-1 EACH PO (01:16)
--- NOTE | 2019-08-19 01:30 | NUR ---
DR. WHITNEY CALLED. ORDERS RECEIVED. NOTIFIED OF NEED FOR WOUND ORDERS. STATED "HAVE CRYSTAL SEE PT". WILL NOTIFY CRYSTAL.
--- NOTE | 2019-08-19 05:42 | NUR ---
ANTKOLE [id number] Please refer to the physician's history and physical for past medical history, comorbid conditions, and allergies. Diagnosis: UNABLE TO AMBULATE Fracisco Score: 16,AT RISK WOUND DESCRIPTIONS: Wound Number: 1 Location of the wound: right great toe Type of wound: traumatic Thickness: Partial Size: 1.5cm x 3.0cm x <0.1cm Tunneling: none Undermining: none Sinus Tract: none Presence of Exudate: Sanguineous noted into cast podiatry is already on consult Amount: Light Color: Red Odor: None Periwound Skin Appearance: Erythema Wound edges: approximated Pain (associated with wound): tender to touch How does patient state this happened? pt stated she fell multiple times at home because of sciatica nerve not being able to hold her up Wound Number: 2 Location of the wound: left knee Type of wound: abrasion Thickness: Partial Size: 1.5cm x 1.2cm x <0.1cm Tunneling: none Undermining: none Sinus Tract: none Presence of Exudate: none Amount: None Color: Brown, red Odor: None Periwound Skin Appearance: Erythema measuring 12.0cm x 13.0cm x <0.1cm Wound edges: approximated Pain (associated with wound): very tender to touch How does patient state this happened? pt stated she fell multiple times at home because of sciatica nerve not being able to hold her up Wound Number: 3 Location of the wound: left arm Type of wound: scab Thickness: Partial Size: 0.4cm x 2.8cm x <0.1cm Tunneling: none Undermining: none Sinus Tract: none Presence of Exudate: none Amount: None Color: Red Odor: None Periwound Skin Appearance: Normal Wound edges: approximated Pain (associated with wound): none at time of assessment How does patient state this happened? pt stated this is from her dogs that scratched her Right knee erythema noted measuring 9.0cm x 9.0cm x <0.1cm. No open areas at time of assessment to right knee and no drainage noted at time of assessment of right knee. Right elbow erythema noted measuring 4.5cm x 3.3cm x <0.1cm. No open areas or drainage noted to right elbow. Patient has red blanchable areas noted to buttocks. Patient is incontient of urine at time of assessment. Pericare provided by PA's at time of assessment. Surface the patient is resting on: Isoflex SKIN PREVENTION RECOMMENDATION: 1. Pressure redistribution support surface as appropriate 2. Elevate heels 3. Remove boots/TEDS every shift and reapply 4. Head of bed 30 degrees as tolerated 5. Assess nutrition and hydration 6. Manage moisture 7. Avoid the use of containment devices while in bed 8. Use absorptive products on surfaces limit layers of linens on bed 9. Turn and reposition every 1-2 hours in bed and every 1 hour in chair as tolerated 10. Weight shifts every 15 minutes while up in chair 11. Offloading with pillows or device to keep heels elevated off bed 12. Monitor skin at least every shift 13. Inspect under medical devices twice a day WOUND TREATMENT RECOMMENDATIONS: Heel raiser pro boots to left foot while in bed Wheelchair cushion when oob. Dressing change: Cleanse right great toe with nss and apply bactroban ointment bid and cover with bandaid. Podiatry is already on consult. Partial thickness guidelines: Cleanse left knee and left arm with nss and apply sureprep around the wound hydrogel to wound bed and cover with optifoam gentle.
--- NOTE | 2019-08-19 07:36 | NUR ---
ATTEMPTED TO CALL PODIATRY FOR CONSULT, NO ANSWER
[2019-08-19 08:00] VITALS: BP 110/62
--- NOTE | 2019-08-19 08:38 | NUR ---
VS STABLE- ELOISE, A&O X3, COLOR IS GOOD, SKIN WARM DRY AND INACT, CAPILLARY <3 SECONDS, SKIN TURGOR NON-TENTING, REDDENED AREAS ON ELBOWS, LEFT ARM SCAB, LEFT KNEE ABRASION, ERYTHEMA NOTED TO RIGHT AND LEFT KNEE, RIGHT GREATER TOE TRAUMATIC INJURY DRESSING INTACT WITH VISABLE LIGHT SANGUINEOUS DRAINAGE, LUNGS DIMINISHED BILATERALLY WHEEZES ON INSPIRATION AND EXPIRATION CRACKLES ON BASE, PO2 97% ON ROOM AIR, HEART SOUNDS NORMAL RATE OF 94, ABDOMEN SOFT NON-TENDER NON-DISTENDED, BOWEL SOUNDS X4, PATIENT STATES "SCIATIC NERVE PAIN 8/10", PATIENT PLEASANT AND COOPERATIVE, NO FURTHER COMPLAINTS AT THIS TIME, WILL CONTINUE TO ASSESS. [facility]
--- NOTE | 2019-08-19 09:00 | NUR ---
Moving Van Driver in to talk to patient. Patient states lives at home with her uhgesa-vs-rvn, son, and her son's girlfriend. There are 28 steps in the home. Physician: Dr. Ronald Oneal Pharmacy: [facility] health services: none Patient's level of ADLs: MINIMAL ASSIST Patient has working utilities: yes DME: cane, walker, nebulizer, c-pap, O2/DME supplier [employer] (previously [employer]) Follow-up physician's appointment after d/c: she prefers to make her own follow up appt after discharge Does patient want to access PORTAL?: no Discharge plan discussed with patient. She lives at home with her family. She is normally independent in her ADLs and ambulates with either a cane or a walker. She is awaiting [employer] to send her replacement pieces for her c-pap. Discussed short term SNF and she is agreeable. When provided with a list of facilities she chose [facility] as she has been there before. regional planner notified. When medically stable, accepted, and precert is obtained she will be discharged to [facility]. NYDIA STREETER
--- NOTE | 2019-08-19 10:02 | NUR ---
PHYSICIAN WAS NOTIFIED OF DR. ARIAS CONSULT. RESPONSE OF NOTIFICATION WAS DR SORIANO SAID OK WE WILL SEE HER.. GUERRERO NEVES
--- NOTE | 2019-08-19 11:34 | NUR ---
DRESSING ON RIGHT GREATER TOE FELL OFF. RECLEANED WITH NS. BANDAGE AND BACTRABAN REAPPLIED. TOLERATED WELL. HEIDY BENITEZCC
[2019-08-19 16:00] VITALS: BP 105/64
--- NOTE | 2019-08-19 18:58 | NUR ---
C/O SCIATICA PAIN OF 03/31. REQUESTED IV DILAUDID. GIVEN AT THIS TIME. WILL CONT TO MONITOR. CALL LIGHT IN REACH.
--- NOTE | 2019-08-19 19:07 | NUR ---
Shift chart check completed.24 HR chart check completed.
--- NOTE | 2019-08-19 20:19 | NUR ---
ON ASSESSMENT PATIENT RESTING EASILY IN BED. CAST INTACT WITH BANDAID TO RT GREAT TOE. PT WIGGLES HER RT TOES. NO SWELLING ABOVE HER CAST TO RT LEG. HEEL RAISER TO LEFT FOOT. PT ASKING WHEN DILAUDID CAN BE GIVEN AGAIN BECAUSE IT DID HELP SOME. WHITE BOARD UPDATED. NO RESPIRATORY DISTRESS. ABDOMEN SOFT. HEP LOCK INTACT RT ARM. SEE ALL APPROPRIATE INTERVENTIONS.
--- NOTE | 2019-08-19 22:30 | NUR ---
MEDICATED WITH HER ROUTINE HS MEDS. PT ASKED ABOUT "NEXT PAIN SHOT". SHOWED HER THE WHITE BOARD AND TOLD HER ABOUT ASKING IF STILL HAVING PAIN AT 0045.
--- NOTE | 2019-08-19 23:45 | NUR ---
ASSUMED CARE FOR THIS PT AT THIS TIME. PT RESTING QUIETLY IN BED. NO S/S OF DISTRESS NOTED. CALL LIGHT IN REACH.
[2019-08-20] VITALS: BP 118/75
--- NOTE | 2019-08-20 00:51 | NUR ---
PT MEDICATED W/DILAUDID FOR C/O RT HIP PAIN 04/30. CALL LIGHT IN REACH.
[2019-08-20 08:00] VITALS: BP 82/60
--- NOTE | 2019-08-20 08:00 | NUR ---
DR WHITNEY NOTIFIED OF BP 82/60. NEW ORDERS RECEIVED TO STOP MEDICATIONS.
--- NOTE | 2019-08-20 08:08 | NUR ---
patient requesting a referral to [facility]. Contacted facility and faxed initial referral. Waiting on PT/OT evals. Requires precert.
--- NOTE | 2019-08-20 08:55 | NUR ---
Patient in bed with lights off and approached for OT evaluation. Patient reports severe 10/10 pain in left buttock, left groin and LLE. Nurse reports patient's blood pressure in 82/60 and that patient has not been moving out of bed much and that she will not be gettig any pain medication with her low blood pressure. OTR to recheck at a later time. Madai Campoverde OTR/Karen
--- NOTE | 2019-08-20 09:00 | NUR ---
Water Treatment Plant Supervisor in to see patient. No new needs or request at this time. When medically stable, accepted, and precert received she will be discharged to [facility]. office workforce planner following.
--- NOTE | 2019-08-20 09:15 | NUR ---
PHYSICAL THERAPY Attempted to see pt for eval c/o 04/30 pain L hip and she "can't do anything" at this time. Spoke with nsg pt has received all pain meds she can and not giving her anymore at this time as pt's BP is only 82/60. Will see pt later today as able pending pain level and BP. Maylin Scott PT
--- NOTE | 2019-08-20 11:11 | NUR ---
C/O PAIN TO HIP OF 04/30. NORCO GIVEN AT THIS TIME. WILL CONT TO MONITOR. CALL LIGHT IN REACH.
[2019-08-20] MEDS ORDERED: XANAX1 MG PO (11:16)
[2019-08-20] MEDS ORDERED: XARELTO10 MG PO (11:26)
--- NOTE | 2019-08-20 11:28 | NUR ---
RECEIVED LIST OF MEDS FROM PT PHARMACY AND COMPARED WITH HER MED LIST FROM HOME. QUESTIONED PT REGARDING SOME MEDS. DR WHITNEY UPDATED AND MEDS WERE ADJUSTED.
[2019-08-20] MEDS ORDERED: Amaryl2 MG PO (11:30)
[2019-08-20 12:00] VITALS: BP 105/62
--- NOTE | 2019-08-20 12:11 | NUR ---
BALTIC EFF AT THIS TIME. WILL CONT TO MONITOR. CALL LIGHT IN REACH.
--- NOTE | 2019-08-20 12:42 | NUR ---
[facility] stating they are unable to accept this patient at this time. They cannot meet her needs.
--- NOTE | 2019-08-20 12:50 | NUR ---
[facility] not able to accept patient at this time. Discussed with patient the other SNF within her network would be [facility] in [place]. She states "that is a little far for my family to drive to come visit me but if that is the only place I can go to then that is the only place I can go to." mechanical planner notified.
--- NOTE | 2019-08-20 15:20 | NUR ---
Patient approached for OT evaluation and she pleasantly declined dt fatigue. OTR will attempt at a later date. Laly Campoverde OTR/shima
--- NOTE | 2019-08-20 15:30 | NUR ---
PHYSICAL THERAPY Attempted to see pt for eval at the bedside pt requesting to be seen in the AM Maylin Scott PT
[2019-08-20 16:00] VITALS: BP 104/55
--- NOTE | 2019-08-20 20:30 | NUR ---
Patient resting quietly on entrance to room. Respirations easy and regular. Vital signs stable. No overt distress. During assessment pt c/o sciatic pain. Will plan to administer norco with night time medications. Pt aware, states "that would be fine". VLAD BILLINGS
--- NOTE | 2019-08-20 22:13 | NUR ---
NORCO ADMINISTERED FOR PT C/O SCIATIC PAIN RATED AN 8/10 ON THE PAIN SCALE. WILL CONTINUE TO MONITOR.
--- NOTE | 2019-08-20 23:30 | NUR ---
PT ASLEEP. NO SIGNS OF DISCOMFORT OR DISTRESS.
[2019-08-21] VITALS: BP 86/52; BP 98/60
--- NOTE | 2019-08-21 02:14 | NUR ---
24 HOUR CHART CHECK COMPLETE.
[2019-08-21 08:00] VITALS: BP 101/63
--- NOTE | 2019-08-21 09:00 | NUR ---
Team Leader/Research Psychologist in to see patient. No new needs or request at this time. When medically stable, accepted, and precert received she will be discharged to [place]. workforce planner following.
--- NOTE | 2019-08-21 09:02 | NUR ---
Patient not available for OT evaluation as she is eating breakfast. OTR will recheck in 25 min. Laly Campoverde OTR/shima
--- NOTE | 2019-08-21 09:35 | NUR ---
Occupational Therapy evaluation completed on 5 with full eval to follow. Precautions include RLE NWB, fall risk,obesity,+2 max assist for transfers and standing, high complexity level 31129. Recommend OT per POC and SNF to enable safe return home with family. Thank you. Laly Campoverde OTR/l
--- NOTE | 2019-08-21 09:57 | NUR ---
PHYSICAL THERAPY Nadyaal completed pt moderate level of complexity 84258 full report to follow recomend SNF at discharge. PT to work on transfers, abm with AD, balance, safety and strengthening. Maylin Scott PT
--- NOTE | 2019-08-21 14:00 | NUR ---
Patient referred to the [facility] and accepted. Precert started 08/21/19. Hospital exemption complete. We are waiting for auth.
[2019-08-21 16:00] VITALS: BP 110/76
--- NOTE | 2019-08-21 16:41 | NUR ---
C/O HIP PAIN OF 02/28. NORCO GIVEN AT THIS TIME. WILL CONT TO MONITOR. CALL LIGHT IN REACH.
--- NOTE | 2019-08-21 17:17 | NUR ---
RECEIVED PHONECALL FROM [facility] AND THEY STATED THEY RECEIVED THE AUTH FOR THE PATIENT TO COME TONIGHT. NOTIFIED DR WHITNEY AND HE STATED HE WILL DISCHARGE HER TOMORROW. RELAYED THIS TO AYLA FROM [facility].
--- NOTE | 2019-08-21 19:45 | NUR ---
INTO ASSESS PATIENT. PATIENT SLEEPING, AROUSABLE BUT DROWSY. FLAT AFFECT. VOICES NO COMPLAINTS AT THIS TIME. RESPIRATIONS EASY, NON LABORED. VITALS WNL. BED IN THE LOWEST POSITION,CALL LIGHT WITHIN REACH. BED ALARM ON. WILL CONTINUE TO MONITOR.
[2019-08-22] VITALS: BP 104/50
--- NOTE | 2019-08-22 03:08 | NUR ---
PATIENT C/O SCIATICA PAIN THAT RADITATES DOWN INTO HER RIGHT HIP. RATES 02/28. MEDICATED WITH NORCO. WILL CHECK EFFECTIVENESS.
--- NOTE | 2019-08-22 04:00 | NUR ---
PATIETN SLEEPING, NO SIGNS OF DISTRESS.RESPIRATIONS EASY, NON LABORED. BED IN LOWEST POSITION, CALL LIGHT WITHIN REACH. BED ALARM ON. WILL CONTINUE TO MONITOR.
--- NOTE | 2019-08-22 06:00 | NUR ---
PATIENT BS 77. PATIENT ASYMPTOMATIC. GIVEN 2 ORANGE JUICES. WILL CONTINUE TO MONITOR.
[2019-08-22 08:00] VITALS: BP 106/52
--- NOTE | 2019-08-22 13:29 | NUR ---
PHYSICAL THERAPY Patient supine in bed at time of arrival. Patient identified by name/ and provided informed consent for treatment. Patient reports 9/10 pain in (L) LE, as well as 3/10 pain in (R) LE and requests to not perform any standing this date due to pain level and fear of leg giving out. Performance of bed mobility- patient transitions supine<->sit requiring supervision. Seated B LE ther-ex, AROM- for strength, endurance and ROM: marches, LAQ, hip ABD/ADD, ankle PF/DF 2x20 reps. Intermittent rest breaks provided, due to fatigue. MINERAL SURVEYOR also providing education to patient on supine ther-ex to perform while in bed to increase strength/mobility. Patient supine in bed at session end with call light and tray table with lunch. Patient voiced no new complaints throughout session. MINERAL SURVEYOR monitoring patient tolerance throughout with no change in pain status. Graciela Kirkpatrick, MINERAL SURVEYOR
[2019-08-22 16:00] VITALS: BP 103/68
--- NOTE | 2019-08-22 20:00 | NUR ---
AAOX3 SITTING UP IN BED. HEP LOCK INTACT TO RIGH HAND. PT. VOICES NO C/O AT THIS TIME. NO DISTRESS NOTED. WILL CONTINUE TO MONITOR. CALL LIGHT WITHIN REACH.
--- NOTE | 2019-08-22 21:46 | NUR ---
MEDICATED WITH NORCO FOR C/O RIGHT FOOT/LEG PAIN.
[2019-08-23] VITALS: BP 105/61
--- NOTE | 2019-08-23 | NUR ---
RESTING IN BED WITH EYES CLOSED; PAIN MEDICATION GIVEN EARLIER APPARENTLY EFFECTIVE. CALL LIGHT WITHIN REACH.
--- NOTE | 2019-08-23 05:59 | NUR ---
MEDICATED WITH NORCO FOR C/O PAIN.
--- NOTE | 2019-08-23 06:21 | NUR ---
BLOOD SUGAR 67; GAVE PATIENT ORANGE JUICE. PT. IS ASYMPTOMATIC.
[2019-08-23 08:00] VITALS: BP 112/67
[2019-08-23 12:00] VITALS: BP 118/59
--- NOTE | 2019-08-23 14:13 | NUR ---
MOSTLY RESTING IN BED TODAY,USES BSC,PODIATRY CHANGED DRSG TO R GREAT TOE,GOOD APPETITE
[2019-08-23 16:00] VITALS: BP 109/59
--- NOTE | 2019-08-23 19:43 | NUR ---
patient resting in bed with eyes closed. awakens easily. denies needs at this time. bed in lowest position, call light in reach
--- NOTE | 2019-08-23 21:12 | NUR ---
patient medicated with prn norco for c/o pain in left hip. will monitor
[2019-08-24] VITALS: BP 105/60
--- NOTE | 2019-08-24 01:19 | NUR ---
MEDICATED WITH PRN NORCO FOR C/O LEFT HIP PAIN RATED 7/10 ON A 0/10 PAIN SCALE. WILL MONITOR
--- NOTE | 2019-08-24 02:58 | NUR ---
24 HR chart check completed.
--- NOTE | 2019-08-24 05:34 | NUR ---
TWO ORANGE JUICES GIVEN FOR BLOOD SUGAR OF 67. PATIENT ASYMPTOMATIC
--- NOTE | 2019-08-24 07:15 | NUR ---
VITALS STABLE. A&O X3. ELOISE. PO2 94% R/A. HEART SOUNDS NORMAL. HRR 88. LUNG SOUNDS DIMINSHED THROUGHOUT. BOWEL SOUNDS ACTIVE X4. ABD SOFT, NONTENDER, NONDISTENDED. IV SITE PATENT. DRESSINGS ON RIGHT GREAT TOE AND BELOW LEFT KNEE INTACT OTHERWISE SKIN PINK, WARM, DRY, AND INTACT. POSITIVE PERIPHERAL PULSES. SKIN TURGOR GOOD, NONTENTED. CAP REFILL <3 SECONDS. PAIN RATED "5/10". PT STATES "ITS MY LEFT HIP. ITS SCIATIC PAIN". PT WAS PLEASANT AND COOPERATIVE. PT IS RELAXING IN BED WITH TV ON AND WALKER CLOSE BY. WILL CONTINUE TO ASSESS. SIMA COMBS SPCC.
[2019-08-24 08:00] VITALS: BP 118/62
--- NOTE | 2019-08-24 08:10 | NUR ---
OT NOTE Pt was seen this A.M. 1:1 for 18 minute OT session. Upon arrival pt was supine in bed. Pt identified by name and and had complaints of 7/10 L hip pain. Pt was educated on RLE NWB status and stated " I can't do it, so it is what it is." Pt transferred supine to sit EOB with SBA. While sitting EOB pt donned L sock with SBA. Sit to stand completed from bed level with CGA and use of w/w for UE support. Functional mobility was then completed into the bathroom with CGA, throughout pt was educated on NWB to RLE and pt was 100% non compliant with weight bearing status. Pt transferred on/off standard commode with Daniel due to low surface. Pt then stood sink side while washing her hands with CGA and placing WBAT through her RLE. Functional mobility was then completed back to the EOB. CHallenged pt's static standing tolerance needed for increased I in self care tasks and functional transfers, pt was able to tolerate aprox 3 minutes before sitting due to fatigue and L hip pain. Pt transferred back into bed sit to supine with SBA. There she was left with call light in hand, tray table in place, and bed alarm activated for safety. Continue with rec D/C plan to SNF. MARILYN Alexandre
--- NOTE | 2019-08-24 08:29 | NUR ---
NORCO 5/325 PO GIVEN FOR PT RATES PAIN OF "5 OR 6 OUT OF 10" FOR "MY SCIATIC PAIN. ITS MY LEFT HIP, LOWER BACK, BUTT, AND DOWN MY LEG" WILL CONTINUE TO ASSESS. SIMA COMBS SPCC.
--- NOTE | 2019-08-24 08:35 | NUR ---
PT RESTING IN BED WITH HOB ELEVATED. RESP-EASY AND REGULAR. STUDENT NURSE WITH PT TODAY. CAST RIGHT LEG, ABLE TO MOVE TOES. BANDAID ON RIGHT GREAT TOE. OPTIFOAM ON LEFT KNEE, SMALL AMOUNT L KNEE EDEMA. LUNGS DIMINISHED T/O WITH FT EXP WHEEZES NOTED. CALL LIGHT IN REACH. WILL CON'T TO MONITOR.
--- NOTE | 2019-08-24 08:44 | NUR ---
PHYSICAL THERAPY Patient presented to therapy in supine with head of bed elevated and bed alarm activated. Patient gives informed consent for treatment. Patient was identified by name and on wristband. Patient is NWB ON THE R LE. Patient transferred supine to sitting on EOB with SBA. Patient performed sat on EOB with SBA. Patient transferred sit to stand from EOB with CGA X 1. Patient ambulated with Wh Walker FOR A TOTAL OF 25' X 1 and CGA X 2 and patient was NOT able to maintain NWB on the R LE. Patient performed seated bilateral LE ther ex x 15 repe on L LE including LAQs, Marches, ankle pumps, and hip abduction. Patient perrformed R LE LAQ and Marches x 15 reps each. Patient transferred back to supine in bed with SBA. Patient will not be able to ambulate becuase she cannot mnaintain the R LE NWB. Patient was left in supine in bed with head of bed elevated, call light within reach and bed alrm activated. Patient was 1:1 with this PRIVATE INVESTIGATOR SURVEILLANCE for 17 minutes total. OSCAR GUADALUPE PRIVATE INVESTIGATOR SURVEILLANCE
--- NOTE | 2019-08-24 08:44 | NUR ---
CALLED DR. WHITNEY PT REQUESTING SMOKING PATCH. ORDERS TAKEN AND REVIEWED.
--- NOTE | 2019-08-24 09:15 | NUR ---
TERRELL PO EFFECTIVE. PT STATES "IT DOESNT HURT BAD BUT IT DOESNT GO AWAY." WILL CONTINUE TO ASSESS. [facility]A [facility]BS [facility].
--- NOTE | 2019-08-24 09:48 | NUR ---
updated clinicals and therapy [facility] waiting on auth.
--- NOTE | 2019-08-24 10:20 | NUR ---
Notified Dr. Oneal patient has been accepted at [facility] and can be discharged when medically stable. associate financial planner following.
[2019-08-24 11:39] VITALS: BP 111/71
[2019-08-24] MEDS ORDERED: NICODERM T (14:18)
--- NOTE | 2019-08-24 15:39 | NUR ---
case management received a call from Maty at the [facility], authorization is obtained and patient can be discharged today, discharge medications faxed to [facility]
--- NOTE | 2019-08-24 15:59 | NUR ---
[facility] CALLED [facility] THEY [facility] TRANSP[facility]. THEY STATE THEY MAY BE LATER THEN 5:30. 5E MAC ALARCON NOTIFIED.
--- NOTE | 2019-08-24 16:20 | NUR ---
PT C/O LEFT BUTTOCK /HIP PAIN, RATES PAIN 6 ON PAIN SCALE 0-10. MEDICATED WITH NORCO PO PER PRN ORDER, SEE EMAR. RESTING IN BED. CALL LIGHT IN REACH. SEE SHIFT ASSESSMENT.
--- NOTE | 2019-08-24 17:02 | NUR ---
Discharge instructions reviewed with patient/family. Patient receptive and verbalizes understanding. Follow-up care arranged. Written instructions given to patient/family. [place] REMOVED 2X2 APPLIED. KARMEN STEPHENS ON THE FLOOR TO ESCORT PT VIA [facility] TO [facility]. BARRETT MARRERO R
--- NOTE | 2019-08-24 17:06 | NUR ---
CALLED [facility] WITH NO ANSWER, CALLED BACK AND THEY WILL HAVE RN CALL WHEN DONE.
--- NOTE | 2019-08-24 17:23 | NUR ---
GAVE REPORT TO WADE [facility]UEN [place].
--- NOTE | 2019-08-25 07:31 | NUR ---
PHYSICAL THERAPY CO-SIGN I approve of the Physical Therapy notes written above. Maylin Scott PT
--- NOTE | 2019-08-25 08:28 | NUR ---
OCCUPATIONAL THERAPY CO-SIGN I approve of the Occupational Therapy notes written above. MALORIE BROWNING, OTR/L
== END 2019-08-24 17:02 | disposition other institution (70) | DRG 556 ==
LOC: ED 19:30 → 5E 22:50 → EDHOLD 22:50 → 5E 23:42
PROVIDERS: ADMIT Internal Medicine
DX: M25.552 Pain in left hip (principal); F33.1 Major depressive disorder, recurrent, moderate; I10 Essential (primary) hypertension; R62.7 Adult failure to thrive; E66.01 Morbid (severe) obesity due to excess calories; J44.9 Chronic obstructive pulmonary disease, unspecified; E03.9 Hypothyroidism, unspecified; E11.9 Type 2 diabetes mellitus without complications; F51.01 Primary insomnia; K21.0 Gastro-esophageal reflux disease with esophagitis; F41.1 Generalized anxiety disorder; M54.5 Low back pain; G89.4 Chronic pain syndrome; I95.9 Hypotension, unspecified; M48.00 Spinal stenosis, site unspecified; F17.200 Nicotine dependence, unspecified, uncomplicated; Z91.040 Latex allergy status; Z88.8 Allergy status to other drugs, medicaments and biological substances; Z68.38 Body mass index [BMI] 38.0-38.9, adult; Z79.01 Long term (current) use of anticoagulants; Z79.899 Other long term (current) drug therapy

== ENCOUNTER 2019-09-16 15:39 | Inpatient (IN) | payer OTHER ==
[~2019-09-16] VITALS: Ht 167.6 cm; Wt 110.3 kg
[~2019-09-16 15:39] MED LIST changes: +Amaryl2 MG PO; +NICODERM T; +XANAX1 MG PO; +XARELTO10 MG PO; +ZESTORETIC 20-1 EACH PO
[2019-09-16 15:49] VITALS: BP 110/71
[2019-09-16 16:30] VITALS: BP 119/69
[2019-09-16 16:30] LABS: BASO % 0.2 % (0.0-1.0); EOS # 0.1 10*3/uL (0.0-0.4); EOS % 0.4 % (1.0-4.0); HEMATOCRIT 48.5 % (37.0-47.0); HEMOGLOBIN 16.5 g/dl (12.0-16.0); LYMPH # 4.2 10*3/uL (1.3-4.4); LYMPH % 32.6 % (27.0-41.0); MEAN CORPUSCULAR HGB 29.9 pg (27.0-31.0); MEAN PLATELET VOLUME 11.5 fl (9.6-12.3); MONO # 0.7 10*3/uL (0.1-1.0); MONO % 5.5 % (3.0-9.0); NEUT # 7.9 10*3/uL (2.3-7.9); NEUT % 60.9 % (47.0-73.0); PLATELET COUNT AUTOMATED 239 10*3/uL (130-400); RED BLOOD COUNT 5.51 10*6/uL (4.10-5.10); RED CELL DISTRI WIDTH 13.5 % (0-14.5); WHITE BLOOD COUNT 12.9 10*3/uL (4.8-10.8)
[2019-09-16 16:40] LABS: ACT PARTIAL THROMBO TIME 25.4 SECONDS (20.0-32.1)
[2019-09-16 17:06] LABS: ALBUMIN 4.2 gm/dl (3.1-4.5); ALKALINE PHOSPHATASE 76 U/L (45-117); BUN 21 mg/dl (7-24); CHLORIDE 104 mmol/L (98-107); CREATININE 0.87 mg/dL (0.55-1.02); LIPASE 103 U/L (73-393); POTASSIUM 3.3 mmol/L (3.5-5.1); SGOT/AST 18 IU/L (3-35); SGPT/ALT 23 U/L (12-78); SODIUM 138 mmol/L (136-145); TOTAL PROTEIN 8.3 gm/dL (6.4-8.2)
[2019-09-16 17:08] LABS: TROPONIN I < 0.015 ng/ml (<0.045)
[2019-09-16 17:30] VITALS: BP 102/68
[2019-09-16 18:30] VITALS: BP 107/51
[2019-09-16 20:00] VITALS: BP 119/59
[2019-09-16] MEDS ORDERED: COREG12.5 M1 PO (22:15)
[2019-09-16] MEDS ORDERED: ZESTRIL20 MG PO (22:17)
[2019-09-16] MEDS ORDERED: ZOFRAN8 M1 PO (22:19)
[2019-09-16] MEDS ORDERED: CLARITIN10 MG PO (22:20)
[2019-09-16] MEDS ORDERED: TYLENOL EXTRA500 MG PO (22:23)
[2019-09-16] MEDS ORDERED: METFORMIN HYD1000 MG PO (22:26)
[2019-09-16] MEDS ORDERED: XARELTO10 MG PO (22:29)
[2019-09-16] MEDS ORDERED: FOSAMAX70 M1 PO (22:31)
[2019-09-17] VITALS: BP 100/60
[2019-09-17 01:42] LABS: BILIRUBIN NEGATIVE (NEGATIVE); BLOOD NEGATIVE (NEGATIVE); CLARITY SL CLOUDY (CLEAR); COLOR YELLOW (YELLOW); GLUCOSE NEGATIVE (NEGATIVE); KETONE 2+ (NEGATIVE); LEUKO ESTERASE NEGATIVE (NEGATIVE); NITRITE NEGATIVE (NEGATIVE)
[2019-09-17 01:44] LABS: RBC 0-2 rbc/hpf (0-2); WBC 0-2 wbc/hpf (0-5)
[2019-09-17 12:00] VITALS: BP 119/70
[2019-09-17 12:29] LABS: ABG BASE EXCESS 3.5 mmol/L (-2.0-2.0); ARTERIAL BLOOD GAS PH 7.527 (7.35-7.45)
[2019-09-17 16:00] VITALS: BP 113/73; BP 120/64
[2019-09-17 19:16] LABS: URINE AMPHETAMINES < 1000 (1000ng/ml); URINE BARBITURATES < 200 (200ng/ml); URINE BENZODIAZEPINES > 200 (200ng/ml); URINE CANNABINOIDS (THC) < 50 (50ng/ml); URINE COCAINE > 300 (300ng/ml); URINE METHADONE < 300 (300ng/ml); URINE OPIATES < 300 (300ng/ml)
[2019-09-17 19:22] LABS: URINE PHENCYCLIDINE < 25 (25ng/ml)
[2019-09-17 20:00] VITALS: BP 111/66; BP 116/6
[2019-09-18] VITALS: BP 106/69
[2019-09-18] MEDS ORDERED: PREDNISONE5 MG PO (08:22)
[2019-09-18] MEDS ORDERED: CEFUROXIME AXE250 MG PO (08:22)
[2019-09-18 12:00] VITALS: BP 120/77
[2019-09-18 16:00] VITALS: BP 128/70
[2019-09-18 20:00] VITALS: BP 119/63
[2019-09-19] VITALS: BP 114/80
[2019-09-19 08:00] VITALS: BP 130/84; BP 134/82
[2019-09-19 12:00] VITALS: BP 117/98
== END 2019-09-19 16:10 | disposition home or self-care (01) | DRG 917 ==
LOC: ED 15:39 → EDHOLD 18:01 → 4E 18:01
PROVIDERS: Emergency Medicine; Student in an Organized Health Care Education/Training Program; ADMIT Internal Medicine
DX: T40.5X1A Poisoning by cocaine, accidental (unintentional), initial encounter (principal); G92 Toxic encephalopathy; J44.1 Chronic obstructive pulmonary disease with (acute) exacerbation; F32.1 Major depressive disorder, single episode, moderate; R07.89 Other chest pain; F17.210 Nicotine dependence, cigarettes, uncomplicated; E03.9 Hypothyroidism, unspecified; F41.1 Generalized anxiety disorder; F51.01 Primary insomnia; G89.4 Chronic pain syndrome; E11.9 Type 2 diabetes mellitus without complications; Z51.5 Encounter for palliative care; Z66 Do not resuscitate; E87.6 Hypokalemia; E11.51 Type 2 diabetes mellitus with diabetic peripheral angiopathy without gangrene; I10 Essential (primary) hypertension; R62.7 Adult failure to thrive; G47.33 Obstructive sleep apnea (adult) (pediatric); E78.2 Mixed hyperlipidemia; F14.10 Cocaine abuse, uncomplicated; F19.10 Other psychoactive substance abuse, uncomplicated; Z68.39 Body mass index [BMI] 39.0-39.9, adult; Y92.89 Other specified places as the place of occurrence of the external cause

== ENCOUNTER → 2019-09-30 | Day surgery (SDC) | payer OTHER ==
[~2019-09-30] VITALS: Ht 168.9 cm; Wt 119.3 kg
[2019-09-30] VITALS (7 sets, daily range): BP systolic 94–116; BP diastolic 50–69
[~2019-09-30] MED LIST changes: +CEFUROXIME AXE250 MG PO; +DOXYCYCLINE100 M3 PO; +METFORMIN HYD1000 MG PO; +PREDNISONE5 MG PO; +TRAMADOL HCL50 MG PO; +ZESTRIL20 MG PO; +ZOFRAN8 M1 PO
== END | disposition home or self-care (01) ==
LOC: CANSCHSDC → SDC 09-11 08:00
DX: T84.84XA Pain due to internal orthopedic prosthetic devices, implants and grafts, initial encounter (principal); I10 Essential (primary) hypertension; J44.9 Chronic obstructive pulmonary disease, unspecified; K21.9 Gastro-esophageal reflux disease without esophagitis; E11.9 Type 2 diabetes mellitus without complications; F41.9 Anxiety disorder, unspecified; F32.9 Major depressive disorder, single episode, unspecified; Z87.891 Personal history of nicotine dependence; Z79.899 Other long term (current) drug therapy; Y83.8 Other surgical procedures as the cause of abnormal reaction of the patient, or of later complication, without mention of misadventure at the time of the procedure; Y92.89 Other specified places as the place of occurrence of the external cause

== ENCOUNTER → 2020-03-08 | Outpatient (CLI) | payer OTHER | END | disposition home or self-care (01) | LOC: MAMMO 15:22 | DX: Z12.31 Encounter for screening mammogram for malignant neoplasm of breast (principal) ==

== ENCOUNTER → 2020-03-25 | Outpatient (CLI) | payer OTHER | END | disposition home or self-care (01) | LOC: CT 11:00 | PROVIDERS: ATTEND Podiatrist Foot & Ankle Surgery | DX: S92.901K Unspecified fracture of right foot, subsequent encounter for fracture with nonunion (principal); Z96.698 Presence of other orthopedic joint implants; X58.XXXD Exposure to other specified factors, subsequent encounter ==

== ENCOUNTER → 2021-01-27 | Outpatient (CLI) | payer OTHER | END | disposition home or self-care (01) | LOC: US 01-26 12:43 | PROVIDERS: ATTEND Podiatrist Foot & Ankle Surgery | DX: R60.0 Localized edema (principal) ==

== ENCOUNTER → 2022-09-04 | Outpatient (CLI) | payer OTHER | END | disposition home or self-care (01) | LOC: RAD 08-06 13:30 → MRI 08-24 14:00 | PROVIDERS: ATTEND Podiatrist Foot & Ankle Surgery | DX: M84.361A Stress fracture, right tibia, initial encounter for fracture (principal); M19.071 Primary osteoarthritis, right ankle and foot; M25.771 Osteophyte, right ankle ==